=== PATIENT | female | born 1935 | race Caucasian/White ===

== ENCOUNTER 2016-10-19 08:35 | Emergency (ER) | payer MEDICARE, OTHER ==
[~2016-10-19] VITALS: Wt 68.2 kg
[~2016-10-19 08:35] MED LIST: ACET500C5 PO; ALBU8.5H3 INH; AMO500 PO; ASPI81TA3 PO; ATOR20TA38 PO; CETI10CA PO; FLUT9.9S NASAL; GUAI120S26 PO; IBUP800T25 PO; LEVO25TA59 PO; TRAM50TA2 PO
[2016-10-19] MEDS ORDERED: SOD CHLORIDE 0.9% 1,000 ML IV STA (09:13)
[2016-10-19 09:57] LABS: ADD UMIC YES; URINE BILIRUBIN (Dip) NEGATIVE (NEGATIVE); URINE BLOOD (Dip) 1+ (NEGATIVE); URINE COLOR LT. YELLOW (YELLOW); URINE GLUCOSE (Dip) NEGATIVE (NEGATIVE); URINE KETONES (Dip) NEGATIVE (NEGATIVE); URINE LEUKOCYTE ESTERASE (Dip) 1+ (NEGATIVE); URINE NITRITE (Dip) NEGATIVE (NEGATIVE); URINE TOTAL PROTEIN (Dip) NEGATIVE (NEGATIVE); URINE UROBILINOGEN (Dip) 0.2 E.U./dL (0.1-1.0)
[2016-10-19 09:59] LABS: BASOPHILS % 0.5 % (0.0-2.0); EOSINOPHILS # 0.2 10^3/ul (0.0-0.5); EOSINOPHILS % 2.1 % (0.0-7.0); HEMATOCRIT 33.8 % (37.0-47.0); HEMOGLOBIN 11.2 g/dl (12.0-16.0); LYMPHOCYTES # 2.1 10^3/ul (0.8-2.9); LYMPHOCYTES % 27.6 % (15.0-51.0); MEAN CORPUSCULAR HEMOGLOBIN 29.4 pg (29.0-33.0); MEAN CORPUSCULAR HGB CONC 33.2 g/dl (32.0-37.0); MEAN CORPUSCULAR VOLUME 88.3 fl (82.0-101.0); MEAN PLATELET VOLUME 7.4 fl (7.4-10.4); MONOCYTE # 0.4 10^3/ul (0.3-0.9); MONOCYTES % 5.5 % (0.0-11.0); NEUTROPHILS % 64.3 % (39.0-77.0); PLATELET COUNT 236 10^3/UL (140-440); RED BLOOD COUNT 3.83 10^6/ul (4.20-5.40); RED CELL DISTRIBUTION WIDTH 15.4 % (11.5-14.5); UNCORRECTED WBC 7.8 10^3/ul (4.8-10.8); WHITE BLOOD COUNT 7.8 10^3/ul (4.8-10.8)
--- NOTE | 2016-10-19 09:59 | RADRPT ---
PROCEDURE: XR Abdomen. CLINICAL INDICATION: No bowel movement for 2 days TECHNIQUE: AP supine and upright abdominal images were obtained COMPARISON: None FINDINGS: There is an S-shaped thoracic lumbar scoliosis. The patient status post previous cholecystectomy. There is gas and feces throughout the large bowel which is not dilated. Rule out constipation. No evidence of small bowel dilatation. Negative for intra-abdominal free air or gross free fluid. The lung bases are unremarkable. IMPRESSION: 1. Rule out constipation. 2. No evidence of obstruction or intra-abdominal free air. RPTAT:AAJJ Physician Leobardo Date Time Electronically viewed and signed by Physician Leobardo on 10/19/2016 09:58 /
[2016-10-19 10:00] LABS: CONDITION 1; LH ANALYZER COMMENTS 1
[2016-10-19 10:04] LABS: SQUAMOUS EPITHELIAL CELL,UR FEW
[2016-10-19 10:17] LABS: ALBUMIN 4.2 g/dl (3.3-4.9)
[2016-10-19 10:18] LABS: POTASSIUM 4.2 mmol/L (3.5-5.1)
[2016-10-19 10:20] LABS: ALBUMIN/GLOBULIN RATIO 1.23; BILIRUBIN,INDIRECT 0.4 mg/dl (0-1.1); BILIRUBIN,TOTAL 0.4 mg/dl (0.2-1.3); CREATININE 0.83 mg/dl (0.44-1.00); TOTAL PROTEIN 7.6 g/dl (6.1-8.1)
[2016-10-19 10:21] LABS: CALCIUM 9.4 mg/dl (8.4-10.2)
[2016-10-19 11:00] VITALS: BP 139/75; PULSE 75; RESP 20; TEMP 98.1
[2016-10-19] MEDS ORDERED: DOCU-144 PO (11:41)
[2016-10-19] MEDS ORDERED: MAGN296S40 PO (11:41)
[2016-10-19] MEDS ORDERED: POLY17PO6 PO (11:41)
--- NOTE | 2016-10-30 23:35 | ERD ---
DATE OF SERVICE: 10/19/2016 HISTORY OF PRESENT ILLNESS: This 80-year-old female, who appears younger than stated age, comes in for left-sided abdominal pain that has been going on for the last few days. She also states that sh e is constipated, and is having very small bowel movements that are pebble-like. She has occasiona l nausea with no vomiting. The pain is made worse with palpation, and it comes and goes. Nothing m akes it better. It is described as an aching pain. REVIEW OF SYSTEMS: A 10-point review of systems negative except as in the HPI. PAST MEDICAL HISTORY: Hypercholesterolemia, coronary artery disease. PAST SURGICAL HISTORY: Coronary stenting. FAMILY HISTORY: Noncontributory. SOCIAL HISTORY: Denies tobacco, alcohol, or other drugs. Is able to care for self. PHYSICAL EXAMINATION VITAL SIGNS: Temperature 97, pulse 75, blood pressure 142/72, respirations 20, oxygen saturation 10 0% on room air. GENERAL: In no acute distress. HEENT: Normocephalic, atraumatic. Mucous membranes moist. CARDIAC: Regular rate and rhythm. No murmurs. LUNGS: Clear to auscultation bilaterally. ABDOMEN: Soft, very mild left-sided abdominal tenderness in the left midabdomen, without guarding o r rebound: Bowel sounds present in all 4 quadrants. NEUROLOGIC: Alert and oriented x3, no focal deficits. SKIN: No rashes or other lesions. EXTREMITIES: No cyanosis, clubbing, or edema. VASCULAR: Distal pulses intact in all 4 extremities. LABORATORY ANALYSIS: CBC significant only for mild normocytic anemia with a hemoglobin of 11.2. BM P is within normal limits. Liver function tests are within normal limits. Lipase is not elevated. Urinalysis 2-5 white cells per high-powered field, as well as 2-5 red cells, with no obvious UTI, i n an asymptomatic patient for dysuria. IMAGING: Abdominal x-ray interpretation: I see moderate stool throughout the colon with no signs o f obstruction, no free air, no acute fractures. EMERGENCY DEPARTMENT COURSE AND MEDICAL DECISION MAKING: The patient was hydrated with a liter of n ormal saline. Due to her age, abdominal workup was performed including abdominal laboratories, whic h returned negative for pancreatitis, liver failure, serious electrolyte abnormalities, renal failur e. The patient is likely suffering from constipation, per symptoms described. I am going to discha rge her with naproxen for pain, as well as magnesium citrate and MiraLAX. I will see her in primary care followup in the next 2-3 days and return precautions to the ER. DISCHARGE DIAGNOSES: 1. Acute abdominal pain. 2. Constipation. 3. Normocytic anemia. DISPOSITION: Home in stable condition. Dictated By: LARS BOYKIN Conf#: [id number] DID#: [id number]
== END 2016-10-19 11:55 | disposition home or self-care (01) ==
LOC: E/R 08:35
DX: R10.9 Unspecified abdominal pain (principal); K59.00 Constipation, unspecified; D64.9 Anemia, unspecified; I25.10 Atherosclerotic heart disease of native coronary artery without angina pectoris; Z98.61 Coronary angioplasty status
CPT/HCPCS: 36415; 74010; 80053; 81001; 83690; 85025; 99284; J7030; 81003

== ENCOUNTER 2017-01-17 17:47 | Emergency (ER) | payer MEDICARE, MEDICAID ==
[~2017-01-17] VITALS: Ht 165.1 cm; Wt 53.0 kg
[~2017-01-17 17:47] MED LIST changes: -AMO500 PO; +DOCU-144 PO; -IBUP800T25 PO; +MAGN296S40 PO; +POLY17PO6 PO
[2017-01-17 17:59] VITALS: Ht 165.1 cm; Wt 53.0 kg
--- NOTE | 2017-01-17 19:03 | ERD ---
ER Documentation Chief Complaint Date/Time DATE: 01/17/17 TIME: 18:57 Chief Complaint HEADACHE MORE ON THE LEFT SIDE. HPI 81-year-old female presented emergency room for left-sided headache. Stated that she had history of headaches but this is the first time that she had this type of headache that is described as throbbing on the left side of his head and it is not radiating. She has mild sensitivity to light. Denies that this is the worst headache of her life, head trauma, loss of consciousness, dizziness, blurry vision, changes in vision, photophobia, facial pain, ear pain, throat pain, difficulty swallowing, neck pain, shoulder pain, chest pain, cough, hemoptysis, abdominal pain, back pain, loss of appetite, nausea, vomiting, hematochezia, diarrhea, constipation, urinary symptoms, , the possibility of being , bladder and bowel incontinences, extremity weakness, extremity tenderness, numbness or tingling sensation, difficulty walking, recent travel, recent exposure to illness, recent antibiotic use in the last 3 months, fever, chills. Allergy: Codeine, morphine. PMH: Hyperlipidemia, migraine. Family medical history: Denies family history of stroke, heart attack. Medications: Fioricet. Surgery: Right eye surgery. Primary Social History: Not working at this time. Denies smoking, use of alcohol, use of illegal drugs. ROS All systems reviewed and are negative except as per history of present illness. Medications Home Meds Active Scripts Docusate Sodium* (Colace*) 100 Mg Capsule, 100 MG PO TID, #30 CAP Prov:JATINDERLARS DO 10/19/16 Magnesium Citrate* (Magnesium Citrate*) 296 Ml Solution, 296 ML PO ONCE, #1 BOTTLE Prov:JATINDERLARS DO 10/19/16 Polyethylene Glycol* (Miralax*) 17 Gm Powd.pack, 17 GM PO DAILY, #7 Prov:JATINDERLARSSHER LEWIS 10/19/16 Albuterol Sulfate* (Proair HFA*) 8.5 Gm Hfa.aer.ad, 2 PUFF INH Q4H Y for WHEEZING AND SOB, #1 INHALER Prov:LUIS EDUARDO RUTHERFORD NP 09/03/16 Fluticasone Propionate (Flonase Allergy Relief) 9.9 Ml [place].susp, 1 SPRAY NASAL BID, #1 BOTTLE TO EACH NOSTRIL Prov:LUIS EDUARDO RUTHERFORD NP 09/03/16 Cetirizine Hcl* (Zyrtec*) 10 Mg Capsule, 10 MG PO DAILY, #30 TAB.CHEW Prov:LUIS EDUARDO RUTHERFORD NP 09/03/16 Lfvhckapyvz-T-Efduxrufsb Hb* (Guaifenesin* DM Syrup) 120 Ml Syrup, 10 ML PO Q4H Y for COUGH, #120 ML Prov:LUIS EDUARDO RUTHERFORD NP 09/03/16 Acetaminophen* (Tylophen*) 500 Mg Capsule, 1 CAP PO Q6H Y for PAIN AND OR ELEVATED TEMP, #20 CAP Prov:LUIS EDUARDO RUTHERFORD NP 09/03/16 Tramadol HCl (Tramadol HCl) 50 Mg Tablet, 50 MG PO Q4 Y for PAIN, #20 TAB Prov:CHARLY GARCÍA MD 08/14/16 Tramadol HCl (Tramadol HCl) 50 Mg Tablet, 50 MG PO Q6 Y for PAIN, #10 TAB Prov:LELE HUTCHINSON MD 06/04/16 Levothyroxine Sodium* (Synthroid*) 25 Mcg Tab, 25 MCG PO AC BREAKFAST for 30 Days Prov:KAREEM PEPE 08/27/15 Aspirin (Aspirin) 81 Mg Chew, 81 MG PO DAILY for 30 Days Prov:KAREEM PEPE 08/27/15 Reported Medications Atorvastatin Calcium* (Atorvastatin Calcium*) 20 Mg Tablet, 20 MG PO QHS, #30 TAB 06/04/16 Allergies Allergies: Coded Allergies: codeine (Verified Allergy, Unknown, stomach pain, 10/19/16) morphine (Verified Allergy, Unknown, 10/19/16) PMhx/Soc History of Surgery: Yes (Stent placement, wrist surgery) Anesthesia Reaction: No Hx Neurological Disorder: No Hx Respiratory Disorders: No Hx Cardiac Disorders: No Hx Psychiatric Problems: No Hx Miscellaneous Medical Probl: Yes (dyslipidemia, HYPERTHYROID) Hx Alcohol Use: No Hx Substance Use: No Hx Tobacco Use: No Smoking Status: Never smoker Physical Exam Vitals Vital Signs Date Time Temp Pulse Resp B/P Pulse Ox O2 Delivery O2 Flow Rate FiO2 01/17/17 17:59 99.1 92 18 144/85 98 Physical Exam CONSTITUTIONAL: Well-appearing; well-nourished. HEAD: Normocephalic; atraumatic. No vesicular lesions noted. No rashes noted. EYES: Conjunctiva clear, sclera non-icteric, EOM intact. PERRLA. Ears: Hearing intact. EACs clear, TMs non-bulging, non-inflamed, translucent & mobile, ossicles normal appearance, No obstructions, no erythema, no discharges Nose: No obstructions. No polyps. No external lesions. Mucosa non-inflamed. No external lesions, septum and turbinates normal. No rhinorrhea. No discharges. Frontal sinus is non-tender to palpation. Maxillary sinus is non-tender to palpation. MOUTH: Moist mucous membranes, no lesion, no obstructions, no vesicles, no thrush, patent airway Throat: Uvula in midline. Right tonsil is +1 with no erythema, no exudate. Left tonsil is +1 with no erythema, no exudate. Tolerating secretions well. Good gag reflex. Patent airway. Neck: Supple, without lesions, bruits, or adenopathy. No mass. Thyroid non- enlarged and non-tender to palpation. CHEST: Symmetrical chest. Respirations even and not labored. No retractions noted. CARDIOVASCULAR: Normal S1, S2. RRR. No murmurs, gallops. RESPIRATORY: Normal chest excursion with respiration; breath sounds clear and equal bilaterally; no wheezes, rhonchi, or rales. Breathing even and unlabored. Speaking in clear, full, and complete sentences w/ ease. ABDOMEN: Normal bowel sounds normal. Soft, round, non-distended, non-guarding, no tenderness, no rebound, no organomegaly, no masses, no pulsating abdominal mass. No hernia. No peritoneal signs. : No CVA tenderness. BACK: Symmetrical shoulder. Spine is midline without deformity, tenderness. No evidence of trauma or deformity. PELVIS: Stable pelvis. No evidence of trauma or deformity. MUSCULOSKELETAL: Normal gait and station. No misalignment, asymmetry, crepitation, defects, tenderness, masses, effusions, decreased range of motion, instability, atrophy or abnormal strength or tone in the head, neck, spine, ribs , pelvis or extremities. No calf tenderness. NEUROVASCULAR: Distal pulses are present. Pedal pulse are present, equal, and normal. Capillary refills are < 2 seconds. NEUROLOGIC: Alert and oriented x4. Speaks full and clear sentences. Cranial Nerves II-XII normal. Sensation to pain, touch, and proprioception normal. Grossly unremarkable. No neurologic deficits. Romberg test is negative. PSYCHOLOGICAL: The patients mood and manner are appropriate. No hallucinations , delusions. Not SI. Not HI. Has the capacity to decide for self SKIN: Normal for age and ethnicity; warm; dry; good turgor; no apparent lesions or exudates. No rashes, hives, discoloration. Intact. Results 24 hrs Laboratory Tests Test 01/17/17 19:02 Urine Color LT. YELLOW Urine Clarity CLEAR Urine pH 6.0 Urine Specific [place] <=1.005 Urine Ketones NEGATIVE Urine Nitrite NEGATIVE Urine Bilirubin NEGATIVE Urine Urobilinogen 0.2 E.U./dL Urine Leukocyte Esterase 1+ Urine Microscopic RBC 5-10/HPF Urine Microscopic WBC 5-10/HPF Urine Squamous Epithelial Cells MODERATE Urine Bacteria FEW Urine Hemoglobin 2+ Urine Glucose NEGATIVE% Urine Total Protein NEGATIVE Procedures/MDM Examination: Please see physical examination. Disease process, medical treatment was explained to the patient and family member. They verbalized understanding and agreed with the diagnostic tests, medical treatment, and follow-up care. Radiology: CT brain Impression: No evidence of acute intracranial pathology. Mild to moderate volume loss, with mild chronic small vessel ischemic changes. Urinalysis: Reviewed. Culture urine: Treatment: None. Re-evaluation: Denies headache, blurry vision, dizziness, neck pain, neck stiffness, shoulder pain, chest pain, back pain, abdominal pain. No nausea and vomiting. Patient is alert and oriented 4. No unilateral deficits. No neurological deficits. Romberg test is negative. Consultation: None. Differential diagnosis: Subarachnoid hemorrhage versus stroke versus migraine versus tension headache versus cluster headache versus sinus headache versus headache Medical decision makin-year-old female presented emergency room for left- sided headache. Stated that she had history of headaches but this is the first time that she had this type of headache that is described as throbbing on the left side of his head and it is not radiating. She has mild sensitivity to light. Patient's complaint, patient's history about her complaint, my physical findings, diagnostic test results, my re-evaluation are consistent with my final diagnosis of sinus headache, UTI. Medications prescribed are the following: Augmentin. Tylenol. Patient and family member are made aware of the side effects and adverse reactions of the medications prescribed. Instructed on when to seek emergent and medical attention in case allergic/anaphylactic reactions or severe side effects and or adverse reactions to medications. Patient and family member verbalized understanding. Patient instructed Instructed to follow-up with his PCP in 24-48 hours. Community resources was also provided. Stated that she will see a primary care provider in the next 24- 48 hours. Instructed to Call 911 for chest pain, shortness of breath. Advised to come back here in ED as soon as possible for severity of symptoms which includes but not limited to: any new symptoms; shortness of breath/difficulty of breathing; cardiovascular changes; severe gastrointestinal symptoms; signs and symptoms of bleeding and or infection; signs of compartment syndrome/neurovascular changes; neurological changes/deficits. Patient and family member verbalized understanding. Upon discharge, patient is alert and oriented x 4, speaks full and clear sentences, denies pain, has no neurological deficits, has no neurovascular deficits, difficulty of breathing. Breathing even and unlabored. Lung sounds are clear to auscultation. Not in distress. Appears comfortable. Ambulatory with steady gait. Appears satisfied with care provided here in ED. Departure Diagnosis: Primary Impression: Sinusitis Additional Impression: UTI (urinary tract infection) Condition: Good Additional Instructions: Patient instructed Instructed to follow-up with his PCP in 24-48 hours. Community resources was also provided. Stated that she will see a primary care provider in the next 24- 48 hours. Instructed to Call 911 for chest pain, shortness of breath. Advised to come back here in ED as soon as possible for severity of symptoms which includes but not limited to: any new symptoms; shortness of breath/difficulty of breathing; cardiovascular changes; severe gastrointestinal symptoms; signs and symptoms of bleeding and or infection; signs of compartment syndrome/neurovascular changes; neurological changes/deficits. Patient and family member verbalized understanding. WIL CASTILLO Jan 17, 2017 19:03
[2017-01-17 19:17] LABS: ADD UMIC YES; URINE BILIRUBIN (Dip) NEGATIVE (NEGATIVE); URINE BLOOD (Dip) 2+ (NEGATIVE); URINE COLOR LT. YELLOW (YELLOW); URINE GLUCOSE (Dip) NEGATIVE (NEGATIVE); URINE KETONES (Dip) NEGATIVE (NEGATIVE); URINE LEUKOCYTE ESTERASE (Dip) 1+ (NEGATIVE); URINE NITRITE (Dip) NEGATIVE (NEGATIVE); URINE TOTAL PROTEIN (Dip) NEGATIVE (NEGATIVE); URINE UROBILINOGEN (Dip) 0.2 E.U./dL (0.1-1.0)
[2017-01-17 19:25] LABS: SQUAMOUS EPITHELIAL CELL,UR MODERATE
[2017-01-17 19:26] LABS: BACTERIA,URINE FEW
--- NOTE | 2017-01-17 19:48 | RADRPT ---
PROCEDURE: CT brain without contrast CLINICAL INDICATION: Headaches TECHNIQUE: CT of the brain without contrast performed on a multidetector CT scanner, with multiplan ar reformats. One or more of the following dose reduction techniques were used: Automated exposure control, adjustment in mA and / or kV according to patient size, use of iterative reconstructive fawn hnique. CTDIvol = 43 mGy; DLP = 712 mGy-cm. COMPARISON: 08/14/2016 FINDINGS: No acute intracranial hemorrhage is identified. No extra-axial fluid collection is seen. There is no mass effect. No midline shift is identified. Ventricles and sulci are mild to moderately enlarged compatible with volume loss. There are mild areas of hypodensity in the periventricular - deep white matter which are nonspecific but suggestive of chronic small vessel ischemic changes. Greer-white differentiation is preserved. Atherosclerotic calcifications of the intracranial internal carotid arteries are noted. Osseous structures are unremarkable. Mastoid air cells and imaged paranasal sinuses grossly clear. IMPRESSION: 1. No evidence of acute intracranial pathology. 2. Mild to moderate volume loss, with mild chronic small vessel ischemic changes. RPTAT: EE .Keenan Brasher MD, MD Date Time Electronically viewed and signed by .Keenan Brasher MD, MD on 01/17/2017 19:48 .O/
[2017-01-17] MEDS ORDERED: AMOX1TAB10 PO (20:31)
[2017-01-17] MEDS ORDERED: ACET325T33 PO (20:31)
== END 2017-01-17 20:46 | disposition home or self-care (01) ==
LOC: FTE 17:47
DX: J32.9 Chronic sinusitis, unspecified (principal); N39.0 Urinary tract infection, site not specified
CPT/HCPCS: 70450; 81001; 81003; 87086

== ENCOUNTER 2017-01-30 11:45 | Emergency (ER) | payer OTHER, MEDICAID ==
[~2017-01-30] VITALS: Ht 152.4 cm; Wt 51.4 kg
[~2017-01-30 11:45] MED LIST changes: +ACET325T33 PO; +AMOX1TAB10 PO
[2017-01-30 11:49] VITALS: Ht 152.4 cm; Wt 51.4 kg
[2017-01-30] MEDS ORDERED: PEN500 PO (13:54)
--- NOTE | 2017-01-30 14:01 | ERD ---
ER Documentation Chief Complaint Date/Time DATE: 01/30/17 TIME: 13:58 Chief Complaint LEFT CHIN SWELLING S/P DENTAL EXTRACTION YESTERDAY HPI 81-year-old female presents emergency room with left-sided facial swelling, she states that she had a dental extraction done on the left upper and left lower teeth, 1 each on Thursday which is 4 days ago. She states that there is swelling associated, and pain, she denies any fevers or bleeding to the area. ROS All systems reviewed and are negative except as per history of present illness. Medications Home Meds Active Scripts Penicillin V Potassium* (Penicillin V K*) 500 Mg Tab, 500 MG PO QID for 7 Days, TAB Prov:JACOBO BALLESTEROS PA-C 01/30/17 Acetaminophen* (Tylenol*) 325 Mg Tablet, 1 TAB PO Q8 Y for PAIN AND OR ELEVATED TEMP, #20 TAB Prov:WIL CASTILLO 01/17/17 Amoxicillin/Potassium Clav (Amox-Clav 875-125 mg Tablet) 875-125 mg Tab, 1 TAB PO BID for 7 Days, #14 TAB Prov:WIL CASTILLO 01/17/17 Docusate Sodium* (Colace*) 100 Mg Capsule, 100 MG PO TID, #30 CAP Prov:LARS TOBIAS DO 10/19/16 Magnesium Citrate* (Magnesium Citrate*) 296 Ml Solution, 296 ML PO ONCE, #1 BOTTLE Prov:LARS TOBIAS DO 10/19/16 Polyethylene Glycol* (Miralax*) 17 Gm Powd.pack, 17 GM PO DAILY, #7 Prov:LARS TOBIAS DO 10/19/16 Albuterol Sulfate* (Proair HFA*) 8.5 Gm Hfa.aer.ad, 2 PUFF INH Q4H Y for WHEEZING AND SOB, #1 INHALER Prov:LUIS EDUARDO RUTHERFORD NP 09/03/16 Fluticasone Propionate (Flonase Allergy Relief) 9.9 Ml [place].susp, 1 SPRAY NASAL BID, #1 BOTTLE TO EACH NOSTRIL Prov:LUIS EDUARDO RUTHERFORD NP 09/03/16 Cetirizine Hcl* (Zyrtec*) 10 Mg Capsule, 10 MG PO DAILY, #30 TAB.CHEW Prov:LUIS EDUARDO RUTHERFORD NP 09/03/16 Alonytitmmq-E-Jqjehockqc Hb* (Guaifenesin* DM Syrup) 120 Ml Syrup, 10 ML PO Q4H Y for COUGH, #120 ML Prov:LUIS EDUARDO RUTHERFORD NP 09/03/16 Acetaminophen* (Tylophen*) 500 Mg Capsule, 1 CAP PO Q6H Y for PAIN AND OR ELEVATED TEMP, #20 CAP Prov:LUIS EDUARDO RUTHERFORD NP 09/03/16 Tramadol HCl (Tramadol HCl) 50 Mg Tablet, 50 MG PO Q4 Y for PAIN, #20 TAB Prov:CHARLY GARCÍA MD 08/14/16 Tramadol HCl (Tramadol HCl) 50 Mg Tablet, 50 MG PO Q6 Y for PAIN, #10 TAB Prov:LELE HUTCHINSON MD 06/04/16 Levothyroxine Sodium* (Synthroid*) 25 Mcg Tab, 25 MCG PO AC BREAKFAST for 30 Days Prov:KAREEM PEPE 08/27/15 Aspirin (Aspirin) 81 Mg Chew, 81 MG PO DAILY for 30 Days Prov:KAREEM PEPE 08/27/15 Reported Medications Atorvastatin Calcium* (Atorvastatin Calcium*) 20 Mg Tablet, 20 MG PO QHS, #30 TAB 06/04/16 Allergies Allergies: Coded Allergies: codeine (Verified Allergy, Unknown, stomach pain, 10/19/16) morphine (Verified Allergy, Unknown, 10/19/16) PMhx/Soc History of Surgery: Yes (Stent placement, wrist surgery) Anesthesia Reaction: No Hx Neurological Disorder: No Hx Respiratory Disorders: No Hx Cardiac Disorders: No Hx Psychiatric Problems: No Hx Miscellaneous Medical Probl: Yes (dyslipidemia, HYPERTHYROID) Hx Alcohol Use: No Hx Substance Use: No Hx Tobacco Use: No Smoking Status: Never smoker Physical Exam Vitals Vital Signs Date Time Temp Pulse Resp B/P Pulse Ox O2 Delivery O2 Flow Rate FiO2 01/30/17 11:49 98.1 89 20 150/86 99 Physical Exam General: Well-developed, well-nourished. The patient appears in no acute distress. HEENT: Head is normocephalic, atraumatic. No scleral icterus. TMs are normal, oropharynx is clear. There are sutures intact in the left upper mid region, as well as the left lower dental region. Multiple teeth are missing posteriorly in the left upper and lower regions. Gingiva is intact, there is no erythema, warmth or drainage. There is left-sided lower jaw swelling and tenderness to palpation. There is no trismus. Neck: Supple. Nontender. Lungs: Clear to auscultation. Normal air movement. Heart: Regular rate and rhythm. S1 and S2 are normal. No murmurs, gallops, or rubs. Abdomen: Nondistended. Extremities: No clubbing or cyanosis. Moving extremities x 4. No weakness. Neurologic: Alert and oriented 3. No focal deficits. Normal speech and gait. Skin: Normal turgor. No rash or lesions. Procedures/MDM 81-year-old female presents with dental pain, there is no evidence of a dental abscess, trismus, retropharyngeal abscess, Robert's angina. Ears are normal, no masses appreciated on examination. Patient will be penicillin for coverage treat given the recent dental work, and she was asked to follow-up with her dentist on Thursday which is 3 days from now. Departure Diagnosis: Primary Impression: Toothache Condition: Good Patient Instructions: Dental Pain Additional Instructions: See your dentist on Thursday. Return sooner for any worsening or new symptoms. JACOBO BALLESTEROS PA-C Jan 30, 2017 14:01
[2017-01-30 14:02] VITALS: BP 147/80; PULSE 68; RESP 16; TEMP 98.2
== END 2017-01-30 14:02 | disposition home or self-care (01) ==
LOC: FTE 11:45
DX: G89.18 Other acute postprocedural pain (principal); K08.89 Other specified disorders of teeth and supporting structures; Z98.61 Coronary angioplasty status
CPT/HCPCS: 99283

== ENCOUNTER 2017-08-17 23:05 | Inpatient (IN) | payer OTHER, MEDICAID ==
[~2017-08-17] VITALS: Ht 160 cm; Wt 56.7 kg
[~2017-08-17 23:05] MED LIST changes: +PENI500T PO
[2017-08-17 23:26] VITALS: Ht 160 cm; Wt 56.7 kg
[2017-08-18] VITALS (10 sets, daily range): BP systolic 130–143; BP diastolic 64–80; PULSE 59–68; RESP 17–18; TEMP 98.9
[2017-08-18 00:58] LABS: BASOPHIL # 0.1 10^3/ul (0.0-0.1); BASOPHILS % 0.5 % (0.0-2.0); EOSINOPHILS # 0.2 10^3/ul (0.0-0.5); HEMATOCRIT 37.1 % (37.0-47.0); HEMOGLOBIN 12.8 g/dl (12.0-16.0); LYMPHOCYTES # 2.2 10^3/ul (0.8-2.9); LYMPHOCYTES % 20.5 % (15.0-51.0); MEAN CORPUSCULAR HEMOGLOBIN 32.4 pg (29.0-33.0); MEAN CORPUSCULAR HGB CONC 34.5 g/dl (32.0-37.0); MEAN CORPUSCULAR VOLUME 93.9 fl (82.0-101.0); MONOCYTE # 0.7 10^3/ul (0.3-0.9); MONOCYTES % 6.8 % (0.0-11.0); NEUTROPHIL # 7.5 10^3/ul (1.6-7.5); NEUTROPHILS % 69.6 % (39.0-77.0); PLATELET COUNT 197 10^3/UL (140-415); RED BLOOD COUNT 3.95 10^6/ul (4.20-5.40); RED CELL DISTRIBUTION WIDTH 12.9 % (11.5-14.5); WHITE BLOOD COUNT 10.8 10^3/ul (4.8-10.8)
--- NOTE | 2017-08-18 01:16 | RADRPT ---
PROCEDURE: XR Chest. CLINICAL INDICATION: Chest pain. TECHNIQUE: AP Portable chest. COMPARISON: 09/03/2016 FINDINGS: There is moderate cardiomegaly. Atherosclerotic calcifications are noted in the aorta. The lungs ar e clear and costophrenic angles sharp. The osseous structures are unremarkable. IMPRESSION: No radiographic evidence of acute cardiopulmonary disease. RPTAT: HJAH .Martín Dewitt MD, MD Date Time Electronically viewed and signed by .Martín Dewitt MD, MD on 08/18/2017 01:15 .T/
[2017-08-18 01:23] LABS: ALANINE AMINOTRANSFERASE 38 IU/L (13-69); ALBUMIN 4.2 g/dl (3.3-4.9); ALBUMIN/GLOBULIN RATIO 1.23; ALKALINE PHOSPHATASE 122 IU/L (42-121); ANION GAP 13 (8-16); ASPARTATE AMINO TRANSFERASE 36 IU/L (15-46); BILIRUBIN,INDIRECT 0.3 mg/dl (0-1.1); BILIRUBIN,TOTAL 0.3 mg/dl (0.2-1.3); BLOOD UREA NITROGEN 24 mg/dl (7-20); CALCIUM 9.7 mg/dl (8.4-10.2); CARBON DIOXIDE 29 mmol/L (21-31); CHLORIDE 103 mmol/L (97-110); CREATININE 0.89 mg/dl (0.44-1.00); GLUCOSE 95 mg/dl (70-220); POTASSIUM 3.9 mmol/L (3.5-5.1); SODIUM 141 mmol/L (135-144); TOTAL PROTEIN 7.6 g/dl (6.1-8.1)
[2017-08-18 01:34] LABS: B-TYPE NATRIURETIC PEPTIDE 86 PG/ML (0-450)
[2017-08-18 01:42] LABS: TROPONIN-I < 0.012 ng/ml (0.00-0.12)
--- NOTE | 2017-08-18 02:31 | ERD ---
ER Documentation Chief Complaint Chief Complaint cp radiating to back for 2 hours HPI This is a 81 female comes with chest pain rating to back for the past 2 hours for chest pain is mild to moderate intensity no exacerbating or alleviating factors. No nausea no vomiting no fevers no chills. Mild diaphoresis. No other current issues ROS All systems reviewed and are negative except as per history of present illness. Medications Home Meds Active Scripts Penicillin V Potassium* (Penicillin V K*) 500 Mg Tab, 500 MG PO QID for 7 Days, TAB Prov:JACOBO BALLESTEROS PA-C 01/30/17 Acetaminophen* (Tylenol*) 325 Mg Tablet, 1 TAB PO Q8 Y for PAIN AND OR ELEVATED TEMP, #20 TAB Prov:WIL CASTILLO 01/17/17 Amoxicillin/Potassium Clav (Amox-Clav 875-125 mg Tablet) 875-125 mg Tab, 1 TAB PO BID for 7 Days, #14 TAB Prov:WIL CASTILLO 01/17/17 Docusate Sodium* (Colace*) 100 Mg Capsule, 100 MG PO TID, #30 CAP Prov:LARS TOBIAS DO 10/19/16 Magnesium Citrate* (Magnesium Citrate*) 296 Ml Solution, 296 ML PO ONCE, #1 BOTTLE Prov:LARS TOBIAS DO 10/19/16 Polyethylene Glycol* (Miralax*) 17 Gm Powd.pack, 17 GM PO DAILY, #7 Prov:LARS TOBIAS DO 10/19/16 Albuterol Sulfate* (Proair HFA*) 8.5 Gm Hfa.aer.ad, 2 PUFF INH Q4H Y for WHEEZING AND SOB, #1 INHALER Prov:LUIS EDUARDO RUTHERFORD NP 09/03/16 Fluticasone Propionate (Flonase Allergy Relief) 9.9 Ml [place].susp, 1 SPRAY NASAL BID, #1 BOTTLE TO EACH NOSTRIL Prov:LUIS EDUARDO RUTHERFORD NP 09/03/16 Cetirizine Hcl* (Zyrtec*) 10 Mg Capsule, 10 MG PO DAILY, #30 TAB.CHEW Prov:LUIS EDUARDO RUTHERFORD NP 09/03/16 Mfbatzcakqy-J-Jfbgrusosb Hb* (Guaifenesin* DM Syrup) 120 Ml Syrup, 10 ML PO Q4H Y for COUGH, #120 ML Prov:LUIS EDUARDO RUTHERFORD NP 09/03/16 Acetaminophen* (Tylophen*) 500 Mg Capsule, 1 CAP PO Q6H Y for PAIN AND OR ELEVATED TEMP, #20 CAP Prov:LUIS EDUARDO RUTHERFORD NP 09/03/16 Tramadol HCl (Tramadol HCl) 50 Mg Tablet, 50 MG PO Q4 Y for PAIN, #20 TAB Prov:CHARLY GARCÍA MD 08/14/16 Tramadol HCl (Tramadol HCl) 50 Mg Tablet, 50 MG PO Q6 Y for PAIN, #10 TAB Prov:LELE HUTCHINSON MD 06/04/16 Levothyroxine Sodium* (Synthroid*) 25 Mcg Tab, 25 MCG PO AC BREAKFAST for 30 Days Prov:KAREEM PEPE 08/27/15 Aspirin (Aspirin) 81 Mg Chew, 81 MG PO DAILY for 30 Days Prov:KAREEM PEPE 08/27/15 Reported Medications Atorvastatin Calcium* (Atorvastatin Calcium*) 20 Mg Tablet, 20 MG PO QHS, #30 TAB 06/04/16 Allergies Allergies: Coded Allergies: codeine (Verified Allergy, Unknown, stomach pain, 10/19/16) morphine (Verified Allergy, Unknown, 10/19/16) PMhx/Soc History of Surgery: Yes (left shoulder, cholecystectomy) Anesthesia Reaction: No Hx Neurological Disorder: No Hx Respiratory Disorders: No Hx Cardiac Disorders: No Hx Psychiatric Problems: No Hx Miscellaneous Medical Probl: Yes (dyslipidemia, HYPERTHYROID) Hx Alcohol Use: No Hx Substance Use: No Hx Tobacco Use: No Smoking Status: Never smoker Physical Exam Vitals Vital Signs Date Time Temp Pulse Resp B/P Pulse Ox O2 Delivery O2 Flow Rate FiO2 08/18/17 02:15 72 16 132/77 98 Room Air 08/18/17 00:07 Nasal Cannula 08/18/17 00:07 76 16 131/82 98 Room Air 08/17/17 23:26 99.2 97 16 143/109 100 Physical Exam Const: [] Head: Atraumatic Eyes: Normal Conjunctiva ENT: Normal External Ears, Nose and Mouth. Neck: Full range of motion..~ No meningismus. Resp: Clear to auscultation bilaterally Cardio: Regular rate and rhythm, no murmurs Abd: Soft, non tender, non distended. Normal bowel sounds Skin: No petechiae or rashes Back: No midline or flank tenderness Ext: No cyanosis, or edema Neur: Awake and alert Psych: Normal Mood and Affect Result Diagram: 08/18/172008/18/17 0021 Results 24 hrs Laboratory Tests Test 08/18/17 00:21 White Blood Count 10.810^3/ul Red Blood Count 3.9510^6/ul Hemoglobin 12.8g/dl Hematocrit 37.1% Mean Corpuscular Volume 93.9fl Mean Corpuscular Hemoglobin 32.4pg Mean Corpuscular Hemoglobin Concent 34.5g/dl Red Cell Distribution Width 12.9% Platelet Count 98172^3/UL Mean Platelet Volume 10.0fl Neutrophils % 69.6% Lymphocytes % 20.5% Monocytes % 6.8% Eosinophils % 2.0% Basophils % 0.5% Nucleated Red Blood Cells % 0.0/100WBC Neutrophils # 7.510^3/ul Lymphocytes # 2.210^3/ul Monocytes # 0.710^3/ul Eosinophils # 0.210^3/ul Basophils # 0.110^3/ul Nucleated Red Blood Cells # 0.010^3/ul Sodium Level 141mmol/L Potassium Level 3.9mmol/L Chloride Level 103mmol/L Carbon Dioxide Level 29mmol/L Anion Gap 13 Blood Urea Nitrogen 24mg/dl Creatinine 0.89mg/dl Glucose Level 95mg/dl Calcium Level 9.7mg/dl Total Bilirubin 0.3mg/dl Direct Bilirubin 0.00mg/dl Indirect Bilirubin 0.3mg/dl Aspartate Amino Transf (AST/SGOT) 36IU/L Alanine Aminotransferase (ALT/SGPT) 38IU/L Alkaline Phosphatase 122IU/L Troponin I < 0.012ng/ml B-Type Natriuretic Peptide 86PG/ML Total Protein 7.6g/dl Albumin 4.2g/dl Globulin 3.40g/dl Albumin/Globulin Ratio 1.23 Procedures/MDM EKG: Rate/Rhythm: [Normal Sinus Rhythm] QRS, ST, T-waves: [No changes consistent w/ acute ischemia] Impression: [No evidence of ischemia or arrhythmia] Chest X-ray 1V Interpreted by me: Soft Tissue: No acute abnormalities Bones: No acute abnormalities Mediastinum/Cardiac Silhouette/Lungs: [No acute abnormalities] Patient's symptoms are concerning for cardiac cause will require inpatient workup and continuous monitoring. Further w/u for ischemia, arrhythmia, PE or dissection will be deferred to the inpatient team. Accepting Care Team: Current data and ongoing care discussed. Time: 2 AM Primary Provider: Taye Consulting: [XOXOXO] Outstanding Data: none Departure Diagnosis: Primary Impression: Chest pain Chest pain type: unspecified Qualified Code: R07.9 - Chest pain, unspecified type Condition: Serious MARYURI TINOCO Aug 18, 2017 02:31
[2017-08-18] MEDS ORDERED: KETOROLAC 15 MG INJ IV STA (03:55)
[2017-08-18] MEDS ORDERED: ACETAMINOPHEN 325 MG TAB PO PRN (04:00)
[2017-08-18] MEDS ORDERED: BISACODYL (EC) 5 MG TAB PO PRN (04:00)
[2017-08-18] MEDS ORDERED: NACL 0.9% 3 ML SYG IV SCH (04:00)
[2017-08-18] MEDS ORDERED: DOCUSATE SODIUM 100 MG CAP PO PRN (04:00)
[2017-08-18] MEDS ORDERED: ONDANSETRON 4 MG INJ IV PRN (04:00)
[2017-08-18 06:24] LABS: CREATINE KINASE 184 IU/L (23-200)
[2017-08-18 06:37] LABS: CK-MB 3.89 ng/ml (0.0-2.4)
[2017-08-18 06:42] LABS: TROPONIN-I < 0.012 ng/ml (0.00-0.12)
[2017-08-18 07:13] LABS: ALBUMIN 3.9 g/dl (3.3-4.9); ALBUMIN/GLOBULIN RATIO 1.21; BILIRUBIN,INDIRECT 0.3 mg/dl (0-1.1); BILIRUBIN,TOTAL 0.3 mg/dl (0.2-1.3); CALCIUM 9.9 mg/dl (8.4-10.2); CHOL/HDL RATIO 2.4 RATIO; CREATININE 0.75 mg/dl (0.44-1.00); MAGNESIUM 1.9 mg/dl (1.7-2.5); POTASSIUM 4.2 mmol/L (3.5-5.1); TOTAL PROTEIN 7.1 g/dl (6.1-8.1)
--- NOTE | 2017-08-18 07:19 | RADRPT ---
PROCEDURE: CT thoracic spine CLINICAL INDICATION: Back pain TECHNIQUE: A CT of the thoracic spine was performed on a GE 64-slice CT scanner utilizing high-res olution axial imaging from the cervical thoracic junction through the thoracolumbar junction. Sagit brian, coronal, and multiplanar reformatted images were made. The CTDIvol is 19.02 mGy and the DLP is 687.96 mGycm. One or more of the following dose reduction techniques were used: automated exposure control, adjust ment of the mA and/or kV according to patient size, or use of iterative reconstruction technique. DI COM images are available. COMPARISON: None. FINDINGS: There is thoracolumbar levoscoliosis and kyphosis. The osseous mineralization is decreased. The exam is degraded by streak artifact. Alignment remains intact. There is mild decreased in height and d epression of the T4 and T6 superior end plates. The intervertebral disk heights are preserved. The re are anterior osteophytes throughout the lower thoracic spine. No disc herniation or central canal stenosis is identified. Posterior elements structures are intact . There is multilevel facet arthro sis.. The prevertebral and paraspinous soft tissues are unremarkable. A cyst is seen in the posteri or right hepatic lobe measuring 4.7 x 3.9 cm. Cholecystectomy clips and biliary ductal dilatation. The aorta is mildly calcified and tortuous. IMPRESSION: 1. Osteopenia. Mild T4 and T6 compression fractures. 2. Thoracolumbar levoscoliosis and kyphosis. 3. Posterior right hepatic cyst. Physician Sherin Date Time Electronically viewed and signed by Physician Sherin on 08/18/2017 07:18 /
--- NOTE | 2017-08-18 07:28 | RADRPT ---
PROCEDURE: CT Cervical Spine without contrast. CLINICAL INDICATION: Neck pain. TECHNIQUE: A CT of the cervical spine was performed on a GE [employer] VCT 64-slice CT scanner uti lizing thin section axial images from the skull base through the thoracic inlet. Sagittal and coron al reformatted images were made. The CTDIvol is 22.29 mGy and the DLP is 561.13 mGycm. DICOM images are available. One or more of the following dose reduction techniques were utilized: 1.) Automated exposure control 2.) Adjustment of the mA +/- kV according to patient's size 3.) Use of iterative reconstruction technique. COMPARISON: CT CSPINE 09/01/2015 FINDINGS: There is degenerative straightening of the normal cervical lordosis. No interval fracture or subluxation is present. Severe disc space loss with associated endplate degenerative changes invo lves C3-C4. There is moderately severe disc space loss which involves C4-C5, C5-C6, and C6-C7. Trace retrolisthesis of C4 relative to C5 is again demonstrated. No opacification of the mastoid sinuses and middle ears. Asymmetrically advanced degenerative changes involve the right C1-C2 lateral mass articulation. Severe right and mild left foraminal stenosis involves C5-C6 secondary to uncovertebral degenerative changes. Moderately severe right foraminal stenosis involves C6-C7 secondary to an eccentric right posterior bony bar and uncovertebral degenerative changes. There is no acute soft-tissue pathology demonstrated. IMPRESSION: 1. No acute fracture. 2. Degenerative straightening of the normal cervical lordosis. 3. Severe disc space loss C3-C4 with moderately severe disc space loss involving C4-C5 through C6-C 7. 4. C5-C6: Severe right mild left foraminal stenosis. 5. C6-C7: Moderately severe right foraminal stenosis. RPTAT: HRSR Physician Alisa Date Time Electronically viewed and signed by Physician Alisa on 08/18/2017 07:28 RR/
--- NOTE | 2017-08-18 07:33 | RADRPT ---
PROCEDURE: CT L-Spine. CLINICAL INDICATION: Back pain TECHNIQUE: CT scan of the lumbar spine was performed on a high-resolution multi-detector CT scanne r. No IV contrast was administered. Coronal and sagittal reformatted images were obtained from the axial source images. Images were reviewed on a high-resolution PACS workstation. Exam CTDI = 27.23 mGy and the DLP = 929.69 mGy-cm. One or more of the following dose reduction techniques were used: automated exposure control, adjustment of the mA and/or kV according to patient size, or use of iter ative reconstruction technique. DICOM images are available. COMPARISON: None. FINDINGS: Levoscoliosis is noted centered at the L2-3 level. There is preservation of the normal lumbar lordo sis. Alignment remains intact. The osseous mineralization is decreased. There is depression of the L3 superior endplate and mild moderate decreased in height. No significant posterior cortical retro pulsion. There is minimal L4-5 anterolisthesis. Interspinous hypertrophic degenerative changes ar e seen at the L3-4 level. The paraspinous soft tissues are unremarkable. T12-L1: The disk is normal in height. L1-2: Mild retrolisthesis. There is mild disc height loss, vacuum disc and osteophytes. Severe left neural foraminal narrowing. No canal stenosis. L2-3: The disk is normal in height. There are small anterior osteophytes. L3-4: The disk is normal in height. Small central disc protrusion. No significant canal stenosis. L eft facet hypertrophy and mild foraminal narrowing. L4-5: The disk is normal in height. Mild disc bulge, and moderate canal stenosis. Facet hypertrophy and moderate severe bilateral neural foraminal narrowing. L5-S1: The disk is normal in height. Mild disc bulge and mild moderate canal stenosis. Facet hypertr ophy and mild neural foraminal narrowing. Bilateral renal collecting systems are prominent. The bladder is distended. The aorta is calcified a nd tortuous. The common iliac arteries are ectatic. IMPRESSION: 1. Osteopenia. Mild L3 compression fracture. 2. Degenerative changes described above. Cindyy Dania, Physician Date Time Electronically viewed and signed by Mehran Najera, Physician on 08/18/2017 07:32 CS/
[2017-08-18 07:43] LABS: THYROID STIMULATING HORMONE 4.86 MIU/L (0.465-4.680)
--- NOTE | 2017-08-18 08:56 | HP ---
Date/Time of Note Date/Time of Note DATE: 08/18/17 TIME: 08:45 Assessment/Plan VTE Prophylaxis VTE Prophylaxis Intervention: SCD's Lines/Catheters IV [facility]atheter Type [facility]from [facility]): Saline Lock Assessment/Plan Chief Complaint/Hosp Course This is a 81-year-old female being admitted to the [facility] floor for: #1 chest pain: Rule out ACS. At the current time i am not 100% convinced that this is indeed true chest pain. Nonetheless we will trend cardiac troponins. Get echocardiogram in the a.m. Nitro as needed pain. Further management and possible cardiology consultation if there is concern for cardiac event. #2 back pain: I do feel like this appears to be more likely her acute etiology and reason for her pain and presentation to the ED. She has palpable pain along the thoracic spine. With her history of osteoporosis I am concerned for possible compression fractures. At the current time I will give her Toradol 15mg IV 1 to see if she receives any relief from her pain. I will order a CT scan of the spine to evaluate for any fractures or other pathology. Further treatment will depend based on the results of the imaging studies. #3 osteoporosis: Patient currently not on any treatment. Workup as an outpatient #4 hypertension: Not on any medications. Continue to monitor #5 hypothyroidism: Continue home levothyroxine dose, check TSH level. #6 Hyperlipidemia: Continue statin #7 seasonal allergy: Continue Flonase, cetirizine, #8 DVT GI prophylaxis: SCDs, no GI prophylaxis needed Further treatment strategy will be implemented as per the clinical course Problems: HPI/ROS Admit Date/Time Admit Date/Time Hx of Present Illness Chief complaint: Back pain radiating to the chest This is a 81 year female who presents to the emergency department complaining of back pain radiating to the chest. Patient states that the pain started approximately 8 PM last night with a starting in the back and then moving up to the chest. Patient though however denies any overt chest pain at the present time. She states that a history of osteoporosis. She does state that when lying on her back she has pain on her spine. Allergies: Codeine, morphine Medications: See KATHI REZA Const: As per HPI Eyes : No pain discharge or redness or change in visual acuity ENT: No pain, sore throat, congestion, congestion, dysphagia or discharge Respiratory: No shortness of breath, cough, sputum, wheezing, or pleuritic pain Cardiovascular: As per HPI GI : no change in appetite, abdominal pain, nausea, vomiting, diarrhea, constipation, or change in the color his stool Genitourinary: No dysuria, hematuria, flank pain , discharge or CVA tenderness Musculoskeletal: As per HPI Skin: No rash, bruising or hives Neuro: No headache, dizziness, syncope, seizure, focal weakness Endocrine: No polyuria, polydipsia, temperature intolerance Psych: No hallucination, depression, anxiety or suicidal ideation PMH/Family/Social Past Medical History Osteoporosis, hyperlipidemia, hypertension, hypothyroidism Past Surgical History Cholecystectomy, left sore shoulder surgery, cardiac cath Family History Significant Family History: COPD Social History Alcohol Use: none Smoking Status: Never smoker Drug Use: none Exam/Review of Systems Vital Signs Vitals Vital Signs Date Time Temp Pulse Resp B/P Pulse Ox O2 Delivery O2 Flow Rate FiO2 08/18/17 06:38 99.2 73 22 141/82 97 Room Air Exam Exam General: It is a very pleasant female lying in bed in mild distress from back pain HEENT: Atraumatic, normocephalic. The pupils are equal, round and reactive. Extraocular motor are intact Neck: Supple with full range of motion. No rigidity or meningismus Chest: Nontender Lungs: Clear to auscultation bilaterally no crackles rales or wheezing Heart: Normal S1-S2, Regular rhythm and rate. No overt murmurs appreciated Abdomen: Soft , nontender, nondistended , bowel sounds are present. No guarding no rebound tenderness , No masses or organomegaly. No costovertebral temporal angle mass Extremities: Normal to inspection, no edema no cyanosis Muscular skeletal: There is a palpation level of T3-T8 Neurologic: Normal mental status, speech normal, cranial nerves II through XII are intact, motor and sensory are intact, no focal weakness Additional Comments PROCEDURE: CT thoracic spine CLINICAL INDICATION: Back pain TECHNIQUE: A CT of the thoracic spine was performed on a GE 64-slice CT scanner utilizing high-resolution axial imaging from the cervical thoracic junction through the thoracolumbar junction. Sagittal, coronal, and multiplanar reformatted images were made. The CTDIvol is 19.02 mGy and the DLP is 687.96 mGycm. One or more of the following dose reduction techniques were used: automated exposure control, adjustment of the mA and/or kV according to patient size, or use of iterative reconstruction technique. DICOM images are available. COMPARISON: None. FINDINGS: There is thoracolumbar levoscoliosis and kyphosis. The osseous mineralization is decreased. The exam is degraded by streak artifact. Alignment remains intact. There is mild decreased in height and depression of the T4 and T6 superior end plates. The intervertebral disk heights are preserved. There are anterior osteophytes throughout the lower thoracic spine. No disc herniation or central canal stenosis is identified. Posterior elements structures are intact . There is multilevel facet arthrosis.. The prevertebral and paraspinous soft tissues are unremarkable. A cyst is seen in the posterior right hepatic lobe measuring 4.7 x 3.9 cm. Cholecystectomy clips and biliary ductal dilatation. The aorta is mildly calcified and tortuous. IMPRESSION: 1. Osteopenia. Mild T4 and T6 compression fractures. 2. Thoracolumbar levoscoliosis and kyphosis. 3. Posterior right hepatic cyst. Physician Sherin Date Time Electronically viewed and signed by Physician Sherin on 08/18/2017 07: 18 CS/ CC: CADEN BEAVER PROCEDURE: CT L-Spine. CLINICAL INDICATION: Back pain TECHNIQUE: CT scan of the lumbar spine was performed on a high-resolution multi-detector CT scanner. No IV contrast was administered. Coronal and sagittal reformatted images were obtained from the axial source images. Images were reviewed on a high-resolution PACS workstation. Exam CTDI = 27.23 mGy and the DLP = 929.69 mGy-cm. One or more of the following dose reduction techniques were used: automated exposure control, adjustment of the mA and/or kV according to patient size, or use of iterative reconstruction technique. DICOM images are available. COMPARISON: None. FINDINGS: Levoscoliosis is noted centered at the L2-3 level. There is preservation of the normal lumbar lordosis. Alignment remains intact. The osseous mineralization is decreased. There is depression of the L3 superior endplate and mild moderate decreased in height. No significant posterior cortical retropulsion. There is minimal L4-5 anterolisthesis. Interspinous hypertrophic degenerative changes are seen at the L3-4 level. The paraspinous soft tissues are unremarkable. T12-L1: The disk is normal in height. L1-2: Mild retrolisthesis. There is mild disc height loss, vacuum disc and osteophytes. Severe left neural foraminal narrowing. No canal stenosis. L2-3: The disk is normal in height. There are small anterior osteophytes. L3-4: The disk is normal in height. Small central disc protrusion. No significant canal stenosis. Left facet hypertrophy and mild foraminal narrowing. L4-5: The disk is normal in height. Mild disc bulge, and moderate canal stenosis. Facet hypertrophy and moderate severe bilateral neural foraminal narrowing. L5-S1: The disk is normal in height. Mild disc bulge and mild moderate canal stenosis. Facet hypertrophy and mild neural foraminal narrowing. Bilateral renal collecting systems are prominent. The bladder is distended. The aorta is calcified and tortuous. The common iliac arteries are ectatic. IMPRESSION: 1. Osteopenia. Mild L3 compression fracture. 2. Degenerative changes described above. Physician Sherin Date Time Electronically viewed and signed by Physician Sherin on 08/18/2017 07: 32 CS/ CC: CADEN BEAVER PROCEDURE: CT Cervical Spine without contrast. CLINICAL INDICATION: Neck pain. TECHNIQUE: A CT of the cervical spine was performed on a [employer] 64- slice CT scanner utilizing thin section axial images from the skull base through the thoracic inlet. Sagittal and coronal reformatted images were made. The CTDIvol is 22.29 mGy and the DLP is 561.13 mGycm. DICOM images are available. One or more of the following dose reduction techniques were utilized: 1.) Automated exposure control 2.) Adjustment of the mA +/- kV according to patient's size 3.) Use of iterative reconstruction technique. COMPARISON: CT CSPINE 09/01/2015 FINDINGS: There is degenerative straightening of the normal cervical lordosis. No interval fracture or subluxation is present. Severe disc space loss with associated endplate degenerative changes involves C3-C4. There is moderately severe disc space loss which involves C4-C5, C5-C6, and C6-C7. Trace retrolisthesis of C4 relative to C5 is again demonstrated. No opacification of the mastoid sinuses and middle ears. Asymmetrically advanced degenerative changes involve the right C1-C2 lateral mass articulation. Severe right and mild left foraminal stenosis involves C5-C6 secondary to uncovertebral degenerative changes. Moderately severe right foraminal stenosis involves C6-C7 secondary to an eccentric right posterior bony bar and uncovertebral degenerative changes. There is no acute soft-tissue pathology demonstrated. IMPRESSION: 1. No acute fracture. 2. Degenerative straightening of the normal cervical lordosis. 3. Severe disc space loss C3-C4 with moderately severe disc space loss involving C4-C5 through C6-C7. 4. C5-C6: Severe right mild left foraminal stenosis. 5. C6-C7: Moderately severe right foraminal stenosis. RPTAT: HRSR Physician Alisa Date Time Electronically viewed and signed by Naomi Munguia Physician on 08/18/2017 07 :28 RR/ CC: CADEN BEAVER PROCEDURE: XR Chest. CLINICAL INDICATION: Chest pain. TECHNIQUE: AP Portable chest. COMPARISON: 09/03/2016 FINDINGS: There is moderate cardiomegaly. Atherosclerotic calcifications are noted in the aorta. The lungs are clear and costophrenic angles sharp. The osseous structures are unremarkable. IMPRESSION: No radiographic evidence of acute cardiopulmonary disease. RPTAT: HJAH .Martín Dewitt MD, Date Time Electronically viewed and signed by .Martín Dewitt MD, on 08/18/2017 01:15 .T/ CC: MARYURI TINOCO Labs Result Diagram: 08/18/17 0021 08/18/17 0542 Medications Medications Current Medications Ondansetron HCl (Zofran Inj) 4 mg Q6H PRN IV NAUSEA AND/OR VOMITING; Start at 04:00 Acetaminophen (Tylenol Tab) 650 mg Q6H PRN PO PAIN LEVEL 1-3 OR FEVER; Start 08/18/17 at 04:00 Docusate Sodium (Colace) 100 mg Q12H PRN PO CONSTIPATION; Start 08/18/17 at 04 :00 Bisacodyl (Dulcolax) 5 mg DAILY PRN PO CONSTIPATION; Start 08/18/17 at 04:00 CADEN BEAVER Aug 18, 2017 08:56
[2017-08-18] MEDS: ASPIRIN 81 MG TAB PO SCH (09:00)
[2017-08-18] MEDS ORDERED: ESCI10TA PO (09:00)
[2017-08-18] MEDS: POLYETHYLENE GLYCOL 17 GM PACKET PO SCH (09:00)
[2017-08-18] MEDS ORDERED: ALBUTEROL HFA 8 GM INHALER INH PRN (09:00)
[2017-08-18] MEDS: LORATADINE 10 MG TAB PO SCH (10:30)
[2017-08-18 11:02] LABS: CREATINE KINASE 166 IU/L (23-200)
[2017-08-18 11:14] LABS: CK-MB 3.29 ng/ml (0.0-2.4)
[2017-08-18 11:15] LABS: TROPONIN-I < 0.012 ng/ml (0.00-0.12)
[2017-08-18] MEDS: DOCUSATE SODIUM 100 MG CAP PO SCH ×2 (13:16→21:00)
--- NOTE | 2017-08-18 15:45 | RADRPT ---
Echocardiogram Report Patient Name: VALENTINE HIGGINS Gender: Female Date: 1935 Study Date: 18-Aug-2017 Dental Professional: Jhonathan [facility] Location: [facility] Ref. Physician: CADEN BEAVER Quality: Adequate Procedures: Transthoracic echocardiogram with complete 2D, M-Mode, and doppler examination. Indications: Chest Pain. 2D/M Mode Doppler Measurement Value Normal Ranges Measurement Value Normal Ranges LVIDd 2D 3.9 3.5 - 5.6 cm AV Peak Shan 1.3 m/sec LVIDs 2D 2.4 2.1 - 4.1 cm AV Peak PG 6.0 mmHg FS 2D 38.4 % AI Peak PG 99.0 mmHg LVPWd 2D 1.1 0.6 - 1.1 cm AI Peak Shan 5.0 m/sec IVSd 2D 1.1 0.6 - 1.1 cm AI PHT 777.0 msec IVS/LVPW 2D 1.0 LVOT Peak Shan 1.2 m/sec AoR Diam 2D 2.6 2.0 - 3.7 cm LVOT Peak PG 6.0 mmHg LA/Ao 2D 1 0 - 1 MV E Peak Shan 0.8 m/sec EDV 2D 59.8 cm3 MV A Peak Shan 0.9 m/sec ESV 2D 14.0 cm3 MV E/A 0.8 LA Dimen 2D 3.7 2.3 - 4.0 cm MV Decel Time 225 msec MV E/A 0.8 TR Peak Shan 2.9 m/sec TR Peak PG 34.0 mmHg RVSP 37.0 mmHg Findings Left Ventricle: Normal left ventricular systolic function. Normal left ventricular cavity size. Mild concentric left ventricular hypertrophy. Ejection fraction is visually estimated at 65 %. Tissue Doppler/Mitral Doppler indices are consistent with impaired relaxation (Stage I diastolic dysfunction). Right Ventricle: Normal right ventricular size. Normal right ventricular systolic function. Left Atrium: There is mild enlargement of left atrium. Right Atrium: There is mild enlargement of right atrium. Mitral Valve: Mild mitral leaflet calcification. Mild mitral annular calcification. Mild mitral valve regurgitation. Aortic Valve: No significant aortic stenosis. Aortic cusps appear mildly calcified. Moderate aortic valve regurgitation. Tricuspid Valve: Normal appearance of the tricuspid valve. Estimated peak PA systolic pressure 37 mmHg. There is mild tricuspid regurgitation. Pulmonic Valve: Pulmonic valve not well visualized. There is trace pulmonic regurgitation. Pericardium: Normal pericardium with no significant pericardial effusion. Aorta: Normal aortic root. IVC: Normal size and normal respiratory collapse consistent with normal right atrial pressure. Conclusions 1.Normal left ventricular systolic function. Normal left ventricular cavity size. Mild concentric left ventricular hypertrophy. Ejection fraction is visually estimated at 65 %. Tissue Doppler/Mitral Doppler indices are consistent with impaired relaxation (Stage I diastolic dysfunction). 2.Moderate aortic valve regurgitation. 3.Estimated peak PA systolic pressure 37 mmHg based on RA pressure of 3 mmHg. Electronically Signed By: Samuel Aguirre 18-Aug-2017 15:45:14 0100 Patient Name: VALENTINE HIGGINS Study Date: 18-Aug-2017 [id number]
--- NOTE | 2017-08-18 17:53 | PN ---
Date/Time of Note Date/Time of Note DATE: 08/18/17 TIME: 17:47 Assessment/Plan VTE Prophylaxis VTE Prophylaxis Intervention: SCD's Lines/Catheters IV Catheter Type (from Nrsg): Peripheral IV Assessment/Plan Assessment/Plan 81 yo F with osteoporosis here with back, leg and chest pain. Imaging with mild L3 compression fracture of unclear chronicity PLAN #compression fracture (likely cause of pt's weakness as well) -PT eval, pain control -no compelling indication for urgent MRI as no evidence of cord compression. Clinical exam suggestive of meralgia paresthetica #chest pain: cards eval to see if stress test indicated. Last stress test 2 yrs ago nl cont home meds Subjective 24 Hr Interval Summary Free Text/Dictation reports several weeks of R leg "weakness" falls. no compromise of bowel or bladder function Exam/Review of Systems Vital Signs Vitals Vital Signs Date Time Temp Pulse Resp B/P Pulse Ox O2 Delivery O2 Flow Rate FiO2 08/18/17 16:40 63 18 138/64 98 Room Air 08/18/17 12:33 97.6 Exam nad no mrg lungs clear abd soft no rashes LE exam: decreased sensation in L2/L3 distribution of R upper thigh. 4+/5 strength R hip flexion and extension. 5/5 R knee, ankle and 5/5 throughout LLE TTE Conclusions 1. Normal left ventricular systolic function. Normal left ventricular cavity size. Mild concentric left ventricular hypertrophy. Ejection fraction is visually estimated at 65 %. Tissue Doppler/Mitral Doppler indices are consistent with impaired relaxation (Stage I diastolic dysfunction). 2. Moderate aortic valve regurgitation. 3. Estimated peak PA systolic pressure 37 mmHg based on RA pressure of 3 mmHg. Results Result Diagram: 08/18/17 0021 08/18/17 0542 Results 24 hrs Laboratory Tests Test 08/18/17 00:15 08/18/17 00:21 08/18/17 05:42 08/18/17 10:18 Free Thyroxine 0.89 White Blood Count 10.8 # Red Blood Count 3.95 L Hemoglobin 12.8 Hematocrit 37.1 Mean Corpuscular Volume 93.9 Mean Corpuscular Hemoglobin 32.4 Mean Corpuscular Hemoglobin Concent 34.5 Red Cell Distribution Width 12.9 Platelet Count 197 Mean Platelet Volume 10.0 # Neutrophils % 69.6 Lymphocytes % 20.5 Monocytes % 6.8 Eosinophils % 2.0 Basophils % 0.5 Nucleated Red Blood Cells % 0.0 Neutrophils # 7.5 Lymphocytes # 2.2 Monocytes # 0.7 Eosinophils # 0.2 Basophils # 0.1 Nucleated Red Blood Cells # 0.0 Sodium Level 141 144 Potassium Level 3.9 4.2 Chloride Level 103 106 Carbon Dioxide Level 29 29 Anion Gap 13 13 Blood Urea Nitrogen 24 H 20 Creatinine 0.89 0.75 Glucose Level 95 88 Calcium Level 9.7 9.9 Total Bilirubin 0.3 0.3 Direct Bilirubin 0.00 0.00 Indirect Bilirubin 0.3 0.3 Aspartate Amino Transf (AST/SGOT) 36 36 Alanine Aminotransferase (ALT/SGPT) 38 34 Alkaline Phosphatase 122 H 104 Troponin I < 0.012 < 0.012 < 0.012 B-Type Natriuretic Peptide 86 Total Protein 7.6 7.1 Albumin 4.2 3.9 Globulin 3.40 H 3.20 Albumin/Globulin Ratio 1.23 1.21 Magnesium Level 1.9 Creatine Kinase 184 166 Creatine Kinase Index 2.1 2.0 Creatinine Kinase MB (Mass) 3.89 H 3.29 H Triglycerides Level 82 Cholesterol Level 143 LDL Cholesterol, Calculated 69 HDL Cholesterol 58 Cholesterol/HDL Ratio 2.4 Thyroid Stimulating Hormone (TSH) 4.860 H Medications Medications Current Medications Ondansetron HCl (Zofran Inj) 4 mg Q6H PRN IV NAUSEA AND/OR VOMITING; Start at 04:00 Acetaminophen (Tylenol Tab) 650 mg Q6H PRN PO PAIN LEVEL 1-3 OR FEVER; Start 08/18/17 at 04:00 Docusate Sodium (Colace) 100 mg Q12H PRN PO CONSTIPATION; Start 08/18/17 at 04 :00 Bisacodyl (Dulcolax) 5 mg DAILY PRN PO CONSTIPATION; Start 08/18/17 at 04:00 Albuterol (Ventolin Hfa) 2 puff Q4H PRN INH WHEEZING AND SOB; Start 08/18/17 at 09:00 Aspirin (Aspirin) 81 mg DAILY PO Last administered on 08/18/17 09:00; Admin Dose 81 MG; Start 08/18/17 at 09:00 Atorvastatin Calcium (Lipitor) 20 mg QHS PO ; Start 08/18/17 at 21:00 Docusate Sodium (Colace) 100 mg TID PO Last administered on 08/18/17 13:16; Admin Dose 100 MG; Start 08/18/17 at 13:00 Fluticasone Propionate (Flonase 0.05% Nasal) 1 spray BID NASAL ; Start at 21:00 Polyethylene Glycol (Miralax) 17 gm DAILY PO Last administered on 08/18/17 09 :00; Admin Dose 17 GM; Start 08/18/17 at 09:00 Tramadol HCl (Ultram) 50 mg Q4 PRN PO PAIN; Start 08/18/17 at 09:00 Loratadine (Claritin) 10 mg DAILY PO Last administered on 08/18/17 10:30; Admin Dose 10 MG; Start 08/18/17 at 10:30 MARGI CASTILLO MD Aug 18, 2017 17:53
[2017-08-18] MEDS: ATORVASTATIN 20 MG TAB PO SCH (21:00)
[2017-08-18] MEDS: FLUTICASONE 0.05% 16 GM NAS SPRAY NASAL SCH (21:00)
[2017-08-18] MEDS: traMADol 50 MG TAB PO PRN (22:35)
[2017-08-19] VITALS (11 sets, daily range): BP systolic 102–147; BP diastolic 58–74; PULSE 54–64; RESP 16–18
[2017-08-19] MEDS: FLUTICASONE 0.05% 16 GM NAS SPRAY NASAL SCH (08:40)
[2017-08-19] MEDS: DOCUSATE SODIUM 100 MG CAP PO SCH ×3 (08:40→20:53)
[2017-08-19] MEDS: POLYETHYLENE GLYCOL 17 GM PACKET PO SCH (08:41)
[2017-08-19] MEDS: LORATADINE 10 MG TAB PO SCH (08:41)
[2017-08-19] MEDS: LEVOTHYROXINE 25 MCG TAB PO SCH (08:41)
[2017-08-19] MEDS: ASPIRIN 81 MG TAB PO SCH (08:42)
[2017-08-19] MEDS ORDERED: ESCITALOPRAM 10 MG TAB PO SCH (09:00)
[2017-08-19] MEDS ORDERED: NITROGLYCERIN (SL) 0.4 MG TAB SL PRN (17:00)
--- NOTE | 2017-08-19 18:32 | PN ---
Date/Time of Note Date/Time of Note DATE: 08/19/17 TIME: 18:28 Assessment/Plan VTE Prophylaxis VTE Prophylaxis Intervention: SCD's Lines/Catheters IV Catheter Type (from Nrsg): Peripheral IV Urinary Cath still in place: No Assessment/Plan Assessment/Plan 81 yo F with osteoporosis here with back, leg and chest pain. Imaging with mild L3 compression fracture of unclear chronicity PLAN #compression fracture (likely cause of pt's weakness as well) -sp PT eval. no needs identified -pain control #chest pain: stress test in AM a1c <5.7 cont statin, asa, BP control (appreciate cardiology assistance) #hypothyroid: TSH slightly high, t4 nl. defer to outpatient setting to consider Synthroid dose adjustment cont home meds Exam/Review of Systems Vital Signs Vitals Vital Signs Date Time Temp Pulse Resp B/P Pulse Ox O2 Delivery O2 Flow Rate FiO2 08/19/17 16:37 60 08/19/17 15:37 97.8 18 122/74 97 08/18/17 22:12 Room Air Intake and Output 08/18/17 08/18/17 08/19/17 15:00 23:00 07:00 Intake Total 300 ml Balance 300 ml Results Result Diagram: 08/18/17 0021 08/18/17 0542 Results 24 hrs Laboratory Tests Test 08/19/17 06:56 Hemoglobin A1c 5.3 Medications Medications Current Medications Ondansetron HCl (Zofran Inj) 4 mg Q6H PRN IV NAUSEA AND/OR VOMITING; Start at 04:00 Acetaminophen (Tylenol Tab) 650 mg Q6H PRN PO PAIN LEVEL 1-3 OR FEVER; Start 08/18/17 at 04:00 Docusate Sodium (Colace) 100 mg Q12H PRN PO CONSTIPATION; Start 08/18/17 at 04 :00 Bisacodyl (Dulcolax) 5 mg DAILY PRN PO CONSTIPATION; Start 08/18/17 at 04:00 Albuterol (Ventolin Hfa) 2 puff Q4H PRN INH WHEEZING AND SOB; Start 08/18/17 at 09:00 Aspirin (Aspirin) 81 mg DAILY PO Last administered on 08/18/17t 09:00; Admin Dose 81 MG; Start 08/18/17 at 09:00 Atorvastatin Calcium (Lipitor) 20 mg QHS PO Last administered on 08/18/17 21: 00; Admin Dose 20 MG; Start 08/18/17 at 21:00 Docusate Sodium (Colace) 100 mg TID PO Last administered on 08/19/17 13:29; Admin Dose 100 MG; Start 08/18/17 at 13:00 Fluticasone Propionate (Flonase 0.05% Nasal) 1 spray BID NASAL Last administered on 08/19/17 08:40; Admin Dose 1 SPRAY; Start 08/18/17 at 21:00 Polyethylene Glycol (Miralax) 17 gm DAILY PO Last administered on 08/19/17 08 :41; Admin Dose 17 GM; Start 08/18/17 at 09:00 Tramadol HCl (Ultram) 50 mg Q4 PRN PO PAIN Last administered on 08/18/17 22: 35; Admin Dose 50 MG; Start 08/18/17 at 09:00 Loratadine (Claritin) 10 mg DAILY PO Last administered on 08/19/17 08:41; Admin Dose 10 MG; Start 08/18/17 at 10:30 Escitalopram Oxalate (Lexapro) 10 mg DAILY PO Last administered on 08/19/17 08:41; Admin Dose 10 MG; Start 08/19/17 at 09:00 Isosorbide Dinitrate (Isordil) 20 mg TID PO ; Start 08/19/17 at 21:00 Nitroglycerin (Nitroglycerin (Sl Tab) 0.4 Mg) 1 tab Q5M PRN SL ANGINA; Start 08/19/17 at 17:00 MARGI CASTILLO MD Aug 19, 2017 18:32
[2017-08-19] MEDS: ATORVASTATIN 20 MG TAB PO SCH (20:53)
[2017-08-19] MEDS: traMADol 50 MG TAB PO PRN (20:54)
[2017-08-19] MEDS ORDERED: ISOSORBIDE DINITRATE 20 MG TAB PO SCH (21:00)
[2017-08-19] MEDS ORDERED: SOD CHLORIDE 0.9% 500 ML IV ONE (23:00)
[2017-08-20] VITALS: PULSE 62
[2017-08-20] MEDS ORDERED: SOD CHLORIDE 0.9% 1,000 ML IV SCH
[2017-08-20 00:13] VITALS: BP 93/47; RESP 16
[2017-08-20] MEDS: FLUTICASONE 0.05% 16 GM NAS SPRAY NASAL SCH (00:29)
--- NOTE | 2017-08-20 02:24 | CONS ---
DATE OF ADMISSION: 08/18/2017 DATE OF CONSULTATION: 08/19/2017 CARDIOLOGY CONSULTATION REASON FOR CONSULTATION: Chest pain, assess for acute coronary syndrome. REQUESTING PHYSICIAN: Dr. Bernard Beaver from the hospitalist service HISTORY OF PRESENT ILLNESS: Ms. Packer is a 81-year-old female with a history of recurrent chest landon n, back pain, osteoporosis , hypertension, hypothyroidism, dyslipidemia, who initially presented wit h complaints of substernal chest pain and back pain. The patient is complaining of chest pain, it i s stabbing in nature, occurring at rest and with exertion. Initially upon arrival in the emergency department, temperature 99.2, blood pressure 143/109, pulse 97, respiratory rate 16, saturating 100% . Patient's labs notable for a white blood cell count of 10.8, hemoglobin 12.8, a platelet count of 197. Sodium 141, potassium 3.9, creatinine 0.89, BUN 24. Troponin negative. TSH of 4.86. Free T 4 0.89, within normal limits. Patient underwent a chest x-ray revealing no acute cardiopulmonary ab normalities. The patient underwent a cervical spine CT revealing a C5-C6 severe right, mid left for aminal stenosis, moderately severe right foraminal stenosis and severe disk space loss C3 to C4, and lumbar spine CT revealing osteopenia and mild L3 compression fracture, and a thoracic C-spine revea ling osteopenia, mild T4 and T6 compression fractures. Patient's electrocardiogram revealed normal sinus rhythm, rate of 86, normal axis, normal intervals and T-wave inversion in V3. Patient subsequ ently admitted to the floor and since admit to the floor, she has had 3 negative troponins, ruling h er out for acute myocardial infarction. The patient continues to complain of chest pain. PAST MEDICAL HISTORY: As above in HPI. MEDICATIONS CURRENTLY IN THE HOSPITAL: 1. Lexapro. 2. Synthroid. 3. Lipitor 20 mg at bedtime. 4. Colace. 5. Claritin. 6. Albuterol. 7. Aspirin 81 mg daily. 8. MiraLax. 9. Tylenol p.r.n. ALLERGIES: 1. CODEINE. 2. MORPHINE. SOCIAL HISTORY: No tobacco, ETOH or illicit drug use. FAMILY HISTORY: No history of sudden cardiac or early CAD. REVIEW OF SYSTEMS: As above in HPI. CONSTITUTIONAL: No fevers, chills. PULMONARY: No current shortness of breath. CARDIOVASCULAR: Intermittent chest pain. GASTROINTESTINAL: No vomiting. GENITOURINARY: No hematuria. MUSCULOSKELETAL: Degenerative joint disease, musculoskeletal back pain. PSYCHIATRIC: Positive medications. NEUROLOGIC: No documented history of CVA. PHYSICAL EXAMINATION: VITAL SIGNS: Temperature of 99.2, blood pressure of 122/74, pulse 65, respiratory rate 18, saturati ng 97%. GENERAL: The patient is alert, awake, complaining of back pain and chest pain. NECK: JVP approximately 8 to 9 cm of water. CHEST: Fair air movement throughout. HEART: Regular rate and rhythm. Normal S1, S2, I/ systolic murmur, nondisplaced PMI. ABDOMEN: Positive bowel sounds, soft. EXTREMITIES: No pitting edema, 1+ pulses bilaterally, posterior tibial. LABORATORY DATA: As above in HPI. No further labs for my review at this time. IMAGING STUDIES: As above in HPI. No further imaging studies for my review at this time. ECG: As above in HPI. No further electrocardiograms for my review at this time. IMPRESSION: 1. Chest pain, assess for acute coronary syndrome with chest pain at this time being somewhat atypi sandra, but patient is convinced it is coming from cardiac etiology. 2. Abnormal electrocardiogram, assess for acute coronary syndrome. 3. Hypertension, well controlled. 4. Dyslipidemia. 5. Back pain with findings of compression fracture. 6. Hypothyroidism. RECOMMENDATIONS: 1. At this time, would maintain the patient on telemetry monitoring to follow rhythm and rate contr ol closely. 2. Would maintain the patient on current atorvastatin for treatment of dyslipidemia and we will giv e the patient low dose oral nitrates and follow symptomatology. 3. Continue patient's aspirin for prophylaxis against cardiovascular events at this time. 4. We will follow the patient's 2D echo assessment of ejection fraction, wall motion and beatriz r valve abnormalities, and give consideration to possible Lexiscan in the morning to further assess possibility of a cardiac source for the patient's chest pain that has caused admit to the hospital. Thank you for allowing me to take part in the care of this patient. I will continue to follow along very closely with you with further recommendations to be made as the patient progresses through her inpatient hospital clinical course. Dictated By: BULL RAMIREZ/MAGED Conf#: [id number] DID#: [id number] CC: BERNARD BEAVER MD;*[facility]*
[2017-08-20 04:00] VITALS: PULSE 64
[2017-08-20 04:22] VITALS: BP 92/54; RESP 16
[2017-08-20] MEDS: traMADol 50 MG TAB PO PRN (06:26)
[2017-08-20] MEDS: LEVOTHYROXINE 25 MCG TAB PO SCH (06:53)
[2017-08-20 07:24] VITALS: BP 125/65; RESP 16
[2017-08-20] MEDS ORDERED: KETOROLAC 15 MG INJ IV STA (07:27)
[2017-08-20] MEDS ORDERED: SOD CHLORIDE 0.9% 500 ML IV ONE (07:30)
[2017-08-20 08:06] VITALS: PULSE 71
--- NOTE | 2017-08-20 09:28 | DS ---
Date/Time of Note Date/Time of Note DATE: 08/20/17 TIME: 09:25 Discharge Summary Admission/Discharge Info Admit Date/Time Aug 18, 2017 at 02:28 Discharge Date/Time Aug 20, 2017 at 08:30 Discharge Diagnosis chest pain, lumbar compression fracture of unknown chronicity, subclinical hypothyroid Patient Condition: Guarded Consults cardiology Procedures 11. CT C/T/L Spine CSPINE IMPRESSION: 1. No acute fracture. 2. Degenerative straightening of the normal cervical lordosis. 3. Severe disc space loss C3-C4 with moderately severe disc space loss involving C4-C5 through C6-C7. 4. C5-C6: Severe right mild left foraminal stenosis. 5. C6-C7: Moderately severe right foraminal stenosis. TSPINE IMPRESSION: 1. Osteopenia. Mild T4 and T6 compression fractures. 2. Thoracolumbar levoscoliosis and kyphosis. 3. Posterior right hepatic cyst. LSPINE IMPRESSION: 1. Osteopenia. Mild L3 compression fracture. 2. Degenerative changes described above. CXR IMPRESSION: No radiographic evidence of acute cardiopulmonary disease. LABS troponin negative x 3, TSH slightly high. t4 nl TTE 11.14 Conclusions 1. Normal left ventricular systolic function. Normal left ventricular cavity size. Mild concentric left ventricular hypertrophy. Ejection fraction is visually estimated at 65 %. Tissue Doppler/Mitral Doppler indices are consistent with impaired relaxation (Stage I diastolic dysfunction). 2. Moderate aortic valve regurgitation. 3. Estimated peak PA systolic pressure 37 mmHg based on RA pressure of 3 mmHg. Hx of Present Illness Chief complaint: Back pain radiating to the chest This is a 81 year female who presents to the emergency department complaining of back pain radiating to the chest. Patient states that the pain started approximately 8 PM last night with a starting in the back and then moving up to the chest. Patient though however denies any overt chest pain at the present time. She states that a history of osteoporosis. She does state that when lying on her back she has pain on her spine. Allergies: Codeine, morphine Medications: See DEC Hospital Course 81 yo F with osteoporosis here with back, leg and chest pain. Imaging with mild L3 compression fracture of unclear chronicity. Regarding pt's chest pain, she was seen by cardiology service and arrangements were made to obtain inpatient stress test. Regarding the compression fracture, pt was seen by PT and was able to ambulate without difficulty. Per note, appears pt became angry about a pain medication early in the morning of 08.20. Despite change in medication from clinical pathologist, pt insisted on leaving AMA. Nurse had pt complete AMA paperwork. I was not made aware of pt's intention to depart until after it happened. Labs were also notable for subclinical hypothyroid. Unfortunately as pt does not have a PCP on file, there is no provider to whom I can fax this discharge summary. I will mail a copy of this summary to the patient to share with her PCP. Home Meds Active Scripts Docusate Sodium* (Colace*) 100 Mg Capsule, 100 MG PO TID, #30 CAP Prov:LARS TOBIAS DO 10/19/16 Magnesium Citrate* (Magnesium Citrate*) 296 Ml Solution, 296 ML PO ONCE, #1 BOTTLE Prov:LARS TOBIAS DO 10/19/16 Polyethylene Glycol* (Miralax*) 17 Gm Powd.pack, 17 GM PO DAILY, #7 Prov:LARS TOBIAS DO 10/19/16 Albuterol Sulfate* (Proair HFA*) 8.5 Gm Hfa.aer.ad, 2 PUFF INH Q4H Y for WHEEZING AND SOB, #1 INHALER Prov:LUIS EDUARDO RUTHERFORD NP 09/03/16 Fluticasone Propionate (Flonase Allergy Relief) 9.9 Ml [place].susp, 1 SPRAY NASAL BID, #1 BOTTLE TO EACH NOSTRIL Prov:LUIS EDUARDO RUTHERFORD NP 09/03/16 Cetirizine Hcl* (Zyrtec*) 10 Mg Capsule, 10 MG PO DAILY, #30 TAB.CHEW Prov:LUIS EDUARDO RUTHERFORD NP 09/03/16 Bdedivbucdg-H-Lnnkewteui Hb* (Guaifenesin* DM Syrup) 120 Ml Syrup, 10 ML PO Q4H Y for COUGH, #120 ML Prov:LUIS EDUARDO RUTHERFORD NP 09/03/16 Acetaminophen* (Tylophen*) 500 Mg Capsule, 1 CAP PO Q6H Y for PAIN AND OR ELEVATED TEMP, #20 CAP Prov:LUIS EDUARDO RUTHERFORD NP 09/03/16 Tramadol HCl (Tramadol HCl) 50 Mg Tablet, 50 MG PO Q4 Y for PAIN, #20 TAB Prov:TEEHEE,CHARLY N. MD 08/14/16 Levothyroxine Sodium* (Synthroid*) 25 Mcg Tab, 25 MCG PO AC BREAKFAST for 30 Days Prov:KAREEM PEPE 08/27/15 Aspirin (Aspirin) 81 Mg Chew, 81 MG PO DAILY for 30 Days Prov:KAREEM PEPE 08/27/15 Reported Medications Escitalopram Oxalate* (Lexapro*) 10 Mg Tablet, 10 MG PO DAILY, #30 TAB 08/18/17 Atorvastatin Calcium* (Atorvastatin Calcium*) 20 Mg Tablet, 20 MG PO QHS, #30 TAB 06/04/16 Discontinued Scripts Penicillin V Potassium* (Penicillin V K*) 500 Mg Tab, 500 MG PO QID for 7 Days, TAB Prov:JACOBO BALLESTEROS PA-C 01/30/17 Acetaminophen* (Tylenol*) 325 Mg Tablet, 1 TAB PO Q8 Y for PAIN AND OR ELEVATED TEMP, #20 TAB Prov:NISSA CASTILLOAR F 01/17/17 Amoxicillin/Potassium Clav (Amox-Clav 875-125 mg Tablet) 875-125 mg Tab, 1 TAB PO BID for 7 Days, #14 TAB Prov:SUSHILILABANNISSAAR F 01/17/17 Tramadol HCl (Tramadol HCl) 50 Mg Tablet, 50 MG PO Q6 Y for PAIN, #10 TAB Prov:LELE HUTCHINSON MD 06/04/16 Follow-up Plan none able to be coordinated as pt left AMA Primary Care Provider Care Physician No Primary Pending Labs Laboratory Tests Test 08/20/17 07:46 Troponin I < 0.012ng/ml (0.00-0.12) MARGI CASTILLO MD Aug 20, 2017 09:28
--- NOTE | 2017-08-21 13:17 | RADRPT ---
Vent Rate: 66 bpm RR Interval: 0 msec OR Interval: 164 msec QRS Duration: 74 msec QT Interval: 404 msec QTC Interval: 423 msec P-R-T [place]: 46 - -1 - 16 degrees Normal sinus rhythm Normal ECG Electronically Signed By: Craig Astudillo [id number]
== END 2017-08-20 08:30 | disposition left against medical advice (07) | DRG 544 ==
LOC: E/R 23:05 → MS3 08-18 02:28 → MS4 08-18 22:02
PROVIDERS: ADMIT Family Medicine; ATTEND Family Medicine
DX: M80.88XA Other osteoporosis with current pathological fracture, vertebra(e), initial encounter for fracture (principal); M41.9 Scoliosis, unspecified; I35.1 Nonrheumatic aortic (valve) insufficiency; E03.9 Hypothyroidism, unspecified; E78.5 Hyperlipidemia, unspecified; J30.2 Other seasonal allergic rhinitis; R94.31 Abnormal electrocardiogram [ECG] [EKG]; Z53.21 Procedure and treatment not carried out due to patient leaving prior to being seen by health care provider; R07.9 Chest pain, unspecified; M85.88 Other specified disorders of bone density and structure, other site; M40.205 Unspecified kyphosis, thoracolumbar region
CPT/HCPCS: 36415; 71010; 72125; 72128; 72131; 80053; 80061; 82550; 82553; 83036; 83735; 83880; 84439; 84443; 84484; 85025; 93005; 93306; 96374; 97162; J1885; J7030; J7040

== ENCOUNTER 2017-10-03 13:33 | Emergency (ER) | END 2017-10-06 11:24 | disposition left against medical advice (07) ==

== ENCOUNTER 2017-11-03 13:20 | Emergency (ER) | END 2017-11-03 17:40 | disposition left against medical advice (07) ==

== ENCOUNTER 2017-11-16 18:48 | Emergency (ER) | END 2017-11-17 02:14 | disposition home or self-care (01) ==

== ENCOUNTER 2017-12-20 21:27 | Emergency (ER) | END 2017-12-21 01:41 | disposition home or self-care (01) ==

== ENCOUNTER 2018-04-25 15:23 | Emergency (ER) | END 2018-04-25 20:37 | disposition home or self-care (01) ==

== ENCOUNTER 2018-12-25 17:44 | Emergency (ER) | payer MEDICARE, OTHER ==
[~2018-12-25] VITALS: Ht 154.9 cm; Wt 56.1 kg
[~2018-12-25 17:44] MED LIST changes: -ACET325T33 PO; -ACET500C5 PO; -ALBU8.5H3 INH; -AMOX1TAB10 PO; -ASPI81TA3 PO; -ATOR20TA38 PO; -CETI10CA PO; -DOCU-144 PO; -FLUT9.9S NASAL; -GUAI120S26 PO; -LEVO25TA59 PO; -MAGN296S40 PO; +MECL12.574 PO; -PENI500T PO; -POLY17PO6 PO; -TRAM50TA2 PO
[2018-12-25 18:03] VITALS: Ht 154.9 cm; Wt 56.1 kg
[2018-12-25] MEDS ORDERED: METOCLOPRAMIDE 10 MG INJ IV STA (20:03)
[2018-12-25 22:05] VITALS: BP 141/90; PULSE 70; RESP 18
--- NOTE | 2018-12-26 00:02 | ERD ---
ER Documentation Chief Complaint Chief Complaint [place] since yesterday; more on the L side HPI This is an 83-year-old female with a history of hypertension presenting with a left-sided frontal headache for the past 3 days on the left side of her head and radiating into her face. The patient's pain has been intermittent, more pronounced at nighttime, with no associated change in vision, nausea, vomiting, focal weakness or numbness. No changes in speech. The pain has been gradual in onset, right as aching. Currently the patient's pain is very low at a 2 out of 10. At the maximum it is 9 out of 10. She denies any recent illnesses, fevers, chills. No chest pain or shortness of breath. ROS All systems reviewed and are negative except as per history of present illness. Medications Home Meds Active Scripts Meclizine Hcl* (Antivert*) 12.5 Mg Tab, 25 MG PO Q6H PRN for DIZZINESS, #20 TAB Prov:FINA WOOTEN DO 04/25/18 Allergies Allergies: Coded Allergies: codeine (Verified Allergy, Unknown, stomach pain, 04/25/18) morphine (Verified Allergy, Unknown, 04/25/18) PMhx/Soc History of Surgery: Yes (Cardio Angio,L Shoulder,R Wrist) Anesthesia Reaction: No Hx Neurological Disorder: No Hx Respiratory Disorders: No Hx Cardiac Disorders: Yes (HTN) Hx Psychiatric Problems: No Hx Miscellaneous Medical Probl: Yes (Dyslipidemia) Hx Alcohol Use: No Hx Substance Use: No Hx Tobacco Use: No Smoking Status: Never smoker FmHx Family History: No diabetes Physical Exam Vitals Vital Signs Date Temp Pulse Resp B/P (MAP) Pulse Ox O2 O2 Flow FiO2 Time Delivery Rate 12/25/18 97.3 70 18 141/90 99 Room Air 22:05 (107) 12/25/18 97.3 67 13 151/91 99 Room Air 19:10 (111) 12/25/18 97.3 77 20 161/93 98 18:03 (115) Physical Exam Const: No acute distress, well-appearing, nontoxic Head: Atraumatic Eyes: Normal Conjunctiva, PERRLA, EOMI, no nystagmus ENT: Normal External Ears, Nose and Mouth. Neck: Full range of motion. No meningismus. No JVD Resp: Clear to auscultation bilaterally Cardio: Regular rate and rhythm, no murmurs Abd: Soft, non tender, non distended. Normal bowel sounds Skin: No petechiae or rashes Back: No midline or flank tenderness Ext: No cyanosis, or edema Neur: Awake and alert, oriented x3, cranial nerves intact, strength and sensations intact in all 4 extremities. Psych: Normal Mood and Affect Result Diagram: 12/25/18202912/25/182029 Results 24 hrs Laboratory Tests Test 12/25/18 20:30 White Blood Count 7.5 10^3/ul Red Blood Count 4.05 10^6/ul Hemoglobin 13.2 g/dl Hematocrit 37.9 % Mean Corpuscular Volume 93.6 fl Mean Corpuscular Hemoglobin 32.6 pg Mean Corpuscular Hemoglobin Concent 34.8 g/dl Red Cell Distribution Width 12.3 % Platelet Count 202 10^3/UL Mean Platelet Volume 9.6 fl Immature Granulocytes % 0.400 % Neutrophils % 48.7 % Lymphocytes % 41.2 % Monocytes % 6.8 % Eosinophils % 2.0 % Basophils % 0.9 % Nucleated Red Blood Cells % 0.0 /100WBC Immature Granulocytes # 0.030 10^3/ul Neutrophils # 3.6 10^3/ul Lymphocytes # 3.1 10^3/ul Monocytes # 0.5 10^3/ul Eosinophils # 0.2 10^3/ul Basophils # 0.1 10^3/ul Nucleated Red Blood Cells # 0.0 10^3/ul Sodium Level 144 mmol/L Potassium Level 4.4 mmol/L Chloride Level 105 mmol/L Carbon Dioxide Level 30 mmol/L Anion Gap 9 Blood Urea Nitrogen 21 mg/dl Creatinine 0.77 mg/dl Est Glomerular Filtrat Rate mL/min mL/min Glucose Level 96 mg/dl Calcium Level 10.2 mg/dl Current Medications Medications Dose Sig/Collins Start Time Status Last (Trade) Ordered Route PRN Stop Time Admin Dose Reason Admin 10 mg ONCE STAT 12/25/18 DC 12/25/18 Metoclopramid IV 20:03 20:28 e HCl 12/25/18 20:04 (Reglan) Procedures/MDM EMERGENT LABS AND DIAGNOSTIC STUDIES: Lab Results above were reviewed and interpreted by me. CBC: no anemia or evidence of infection BMP:no e/o severe acidosis, alkalosis, renal failure, diabetic ketoacidosis Radiology Results as interpreted by Radiology below were reviewed by Sherley Monzon MD: CT head shows no acute abnormalities Initial Nursing notes reviewed. Previous Medical Records requested via the Electronic Health Record. EMERGENCY DEPARTMENT COURSE / MEDICAL DECISION MAKING: Patient is presenting with likely primary headache. Considered subarachnoid hemorrhage, cervical artery dissection, meningitis, temporal arteritis, acute glaucoma, venous thrombosis or carbon monoxide poisoning but less likely based on history, physical and overall well appearance. CT head was done given the patient's age and did not show any significant abnormalities. Labs are normal. Patient treated with IV Reglan, Toradol. Upon reassessment, patients symptoms have significantly improved. There is no evidence of meningitis, intracranial bleed, seizure, stroke. Patient is stable for discharge with analgesics and continued outpatient follow up with PCP. Patient's blood pressure was elevated (>120/80) but appears stable without evidence of hypertensive emergency or urgency. The patient was counseled about the risks of hypertension and urged to pursue outpatient monitoring and therapy within a week with their primary care physician. Departure Diagnosis: Primary Impression: Headache Headache type: unspecified Headache chronicity pattern: acute headache Intractability: not intractable Qualified Codes: R51 - Headache Condition: Stable Patient Instructions: Self-Care for Headaches, Headache, Unspecified Referrals: NO PRIMARY,CARE PHYSICIAN (PCP) Additional Instructions: Si braydon sintomas empeoran, regresa a la cuate de emergencias. Alix lorena isidra con miner medico primario en [address] rich[address]. MELYSSA MONZON MD Dec 26, 2018 00:02
== END 2018-12-25 22:06 | disposition home or self-care (01) ==
LOC: E/R 17:44
DX: R51 Headache (principal); I10 Essential (primary) hypertension
CPT/HCPCS: 36415; 70450; 80048; 85025; 96374; 99285; J2765

== ENCOUNTER 2019-03-30 14:31 | Emergency (ER) | payer MEDICARE, OTHER ==
[~2019-03-30] VITALS: Wt 53.7 kg
[2019-03-30] MEDS ORDERED: SOD CHLORIDE 0.9% 1,000 ML IV STA (16:08)
[2019-03-30] MEDS ORDERED: KETOROLAC 15 MG INJ IV STA (16:08)
[2019-03-30 18:02] VITALS: BP 156/96; PULSE 65; RESP 18
[2019-03-30] MEDS ORDERED: NAPR-985 PO (18:06)
--- NOTE | 2019-03-30 18:20 | ERD ---
ER Documentation Chief Complaint Chief Complaint FEELS WEAK X 3 WEAKS, TODAY [place] HPI This is a 83-year-old female no past medical history presents to the emergency department complaining of a bandlike headache. Patient indicates that she has had these headaches for several years but it progressively worsened over the past 3 weeks. She did not take any analgesic medication for the headache. She had generalized weakness for the past 3 weeks with a decrease in appetite. She denies any shortness of breath. She has no chest pain. She denies any abdominal pain. She had no frequency urgency or dysuria. She denies any diarrhea or constipation. She is right-handed dominant states she does complain of pain in her right upper extremity that is exacerbated with movement. She denies any trauma to the right upper extremity. ROS All systems reviewed and are negative except as per history of present illness. Medications Home Meds Active Scripts Naproxen* (Naprosyn*) 500 Mg Tablet, 500 MG PO BID PRN for PAIN AND/OR INFLAMMATION, #30 TAB Prov:NATALIE LIMA MD 03/30/19 Discontinued Scripts Meclizine Hcl* (Antivert*) 12.5 Mg Tab, 25 MG PO Q6H PRN for DIZZINESS, #20 TAB Prov:FINA WOOTEN DO 04/25/18 Allergies Allergies: Coded Allergies: codeine (Verified Allergy, Unknown, stomach pain, 03/30/19) morphine (Verified Allergy, Unknown, 03/30/19) PMhx/Soc History of Surgery: Yes (Cardio Angio,L Shoulder,R Wrist) Anesthesia Reaction: No Hx Neurological Disorder: No Hx Respiratory Disorders: No Hx Cardiac Disorders: Yes (HTN) Hx Psychiatric Problems: No Hx Miscellaneous Medical Probl: Yes (Dyslipidemia) Hx Alcohol Use: No Hx Substance Use: No Hx Tobacco Use: No Smoking Status: Never smoker Physical Exam Vitals Vital Signs Date Temp Pulse Resp B/P (MAP) Pulse Ox O2 O2 Flow FiO2 Time Delivery Rate 03/30/19 65 18 156/96 99 Room Air 18:02 (116) 03/30/19 98.6 69 18 142/92 100 Room Air 16:41 (109) 03/30/19 98.6 92 18 159/93 99 14:37 (115) Physical Exam Constitutional:Well-developed. Well-nourished. HEENT:Normocephalic. Atraumatic.Pupils were equal round reactive to light. Moist mucous membranes.No tonsillar exudates. Funduscopy exam shows sharp optic disks and venous pulsations are present Neck: No nuchal rigidity. No lymphadenopathy. No posterior cervical spine tenderness or step-offs. Respiratory: Not using accessory muscles of respiration.Lungs were clear to auscultation bilaterally. No rhonchi. No rales. No wheezing. Cardiovascular: Regular rate regular rhythm.No murmurs. No rubs were appreciated.S1, S2 normal. Distal pulses are palpable 2+ bilaterally. GI: Abdomen was soft. Nontender. Non Distended. No pulsatile abdominal masses or bruits. No rebound. No guarding. Bowel sounds were present and normal. Muscle skeletal: Full range of motion of both the upper and lower extremities bilaterally.Normal muscle tone.No assymetrical calf tenderness or swelling. Compartments are soft of the bilateral upper extremities. No obvious bony deformities of right upper extremity. Patient was able to abduct the right upper extremity past 90 degrees. Skin: No petechia, no purpura. No lesions on the palms or the soles of the feet. No maculopapular rash. NEURO: Patient was alert, awake, orientated x3.No facial droop. Gait observed and normal with no ataxia.Speech had regular rate and rhythm. No focal neurological deficits. Result Diagram: 03/30/19 1630 03/30/19 1630 Results 24 hrs Laboratory Tests Test 03/30/19 16:30 03/30/19 17:22 White Blood Count 7.0 10^3/ul Red Blood Count 4.00 10^6/ul Hemoglobin 12.9 g/dl Hematocrit 37.7 % Mean Corpuscular Volume 94.3 fl Mean Corpuscular Hemoglobin 32.3 pg Mean Corpuscular Hemoglobin Concent 34.2 g/dl Red Cell Distribution Width 12.4 % Platelet Count 195 10^3/UL Mean Platelet Volume 9.3 fl Immature Granulocytes % 0.400 % Neutrophils % 65.5 % Lymphocytes % 26.4 % Monocytes % 5.7 % Eosinophils % 1.1 % Basophils % 0.9 % Nucleated Red Blood Cells % 0.0 /100WBC Immature Granulocytes # 0.030 10^3/ul Neutrophils # 4.6 10^3/ul Lymphocytes # 1.9 10^3/ul Monocytes # 0.4 10^3/ul Eosinophils # 0.1 10^3/ul Basophils # 0.1 10^3/ul Nucleated Red Blood Cells # 0.0 10^3/ul Prothrombin Time 12.7 Sec Prothrombin Time Ratio 1.0 INR International Normalized Ratio 0.94 Activated Partial Thromboplast Time 32.5 Sec Sodium Level 140 mmol/L Potassium Level 3.7 mmol/L Chloride Level 106 mmol/L Carbon Dioxide Level 27 mmol/L Anion Gap 7 Blood Urea Nitrogen 15 mg/dl Creatinine 0.82 mg/dl Est Glomerular Filtrat Rate mL/min mL/min Glucose Level 97 mg/dl Calcium Level 9.2 mg/dl Total Bilirubin 0.7 mg/dl Direct Bilirubin 0.00 mg/dl Indirect Bilirubin 0.7 mg/dl Aspartate Amino Transf (AST/SGOT) 32 IU/L Alanine Aminotransferase (ALT/SGPT) 21 IU/L Alkaline Phosphatase 98 IU/L Troponin I < 0.012 ng/ml Total Protein 8.0 g/dl Albumin 4.4 g/dl Globulin 3.60 g/dl Albumin/Globulin Ratio 1.22 Amylase Level 119 U/L Lipase 118 U/L POC Beta HCG, Qualitative NEGATIVE Current Medications Medications Dose Sig/Collins Start Time Status Last (Trade) Ordered Route PRN Stop Time Admin Dose Reason Admin Sodium 1,000 ml @ Q1H STAT 03/30/19 DC 03/30/19 Chloride 1,000 mls/hr IV 16:08 17:01 03/30/19 17:07 Ketorolac 15 mg ONCE STAT 03/30/19 DC 03/30/19 Tromethamine IV 16:08 17:02 (Toradol) 03/30/19 16:13 Procedures/MDM The patient presented to the emergency department with a subacute headache that began within weeks to months of onset. My differential diagnosis included but was not limited to chronic subdural hematoma, brain tumor, brain abscess, chronic sinusitis, temporal arteritis, temporomandibular joint syndrome, psuedotumor cerebri, glaucoma, migrane, HTN, intracranial hemorrhage or cerebral ischemia. This was not the patients worse headache of their life. The patient had a complete neurologic and fundoscopic exam performed by myself that was normal with no focal neurological deficits or retinal hemorrhage. The patient stated this headache was not severe or distinct from other headaches and the history with the physical exam findings did not likely suggest SAH. Therefore, I did not feel it was clinically necessary to perform a lumbar puncture and CSF analysis. I did obtain a CT scan the patient's head which showed no interval hemorrhage mass-effect or midline shift. I obtained a 12-lead EKG tracing to rule for atypical myocardial infarction 12 Lead EKG tracing ordered and reviewed by myself showed: Normal sinus rhythm of 71 bpm and no arrhythmia. MO interval normal. QRS duration normal. No ST segment elevation No ST segment depression. No changes consistent with acute ischemia. The patient had no evidence of urinary tract infection that could be result of her weakness. She had no focal neurological deficits to suggest an ischemic tubal vascular accident. She had no electrolyte abnormalities. The patient was given IV fluids and Toradol and stated this did improve her headache . was bandlike in nature and I did feel this likely result of a tension headache. She will be discharged home with anti-inflammatories. With respect to the patient's tenderness of her right upper extremity there is no evidence of compartment syndrome, no risk factors for necrotizing fasciitis and no radiographic imaging was obtained as the patient did not have any obvious fractures or trauma to her right upper extremity. I did feel this could be muscle skeletal as she undergoes repetitive use as this is her dominant hand. The patient was discharged home in fair condition. They were instructed to return to the emergency department at any time if there was any worsening of their condition. The patient stated they would follow up with their PCP in the next 24-48 hours to initiate a suitable medication regimen under the care of their PCP as well as to allow their PCP to monitor any drug reactions. The patient was discharged home with prescriptions after they gave informed consent to the new medication. They were also fully informed by myself on the adverse effects and adverse drug interactions in order to provide adequate safeguards to prevent possible adverse reactions to medications. Departure Diagnosis: Primary Impression: Tension headache Additional Impression: Right arm pain Condition: Fair Patient Instructions: Tension Headaches, Muscle Strain, Extremity NATALIE LIMA MD Mar 30, 2019 18:20
== END 2019-03-30 18:32 | disposition home or self-care (01) ==
LOC: E/R 14:31
DX: G44.209 Tension-type headache, unspecified, not intractable (principal); M79.601 Pain in right arm; I10 Essential (primary) hypertension
CPT/HCPCS: 70450; 71045; 80053; 81025; 82150; 83690; 84484; 85025; 85610; 85730; 93005; 96374; 99285; J1885; J7030